=== PATIENT | female | born 2000 | race Two or more races ===

== ENCOUNTER 2023-04-04 11:04 | Outpatient (OUT) | payer BC, MEDICAID, SELFPAY ==
--- NOTE | 2023-04-04 11:19 | US_ITS ---
[address] [address] Patient Name: ARIEL JOINER MRN: [id number] date: 2000 Sex: F Assigned Patient Location: US Current Patient Location: US Accession/Order Number: [id number] Exam Date: 04/04/2023 11:25 Report Date: 04/04/2023 18:31 At the request of: LALY PRADO Procedure: US OB growth EXAMINATION: US OB growth HISTORY: 30 weeks gestation of Z3A.30 COMPARISON: No relevant comparison available. FINDINGS: Heart Rate: 150.0 bpm Amniotic Fluid Volume: 15.9 cm Number: 1.0 Position: Breech presentation, longitudinal lie Maximum Vertical Pocket: 6.2 cm cm 5.7 cm cm 1.0 cm cm 2.9 cm cm BIOMETRY: BPD: 7.3 cm cm; 29 weeks 3 days; 22% HC: 28.1 cmcm; 30 weeks 5 days, 36% AC: 27.2 cm cm; 31 weeks 2 days, 81% FL: 5.4 cm cm; 28 weeks 4 days; 7.2 % % EFW: 1537.9 grams, 3 lbs. 6 oz., 46% FL/AC: 19.9 FL/BPD: 73.6 HC/AC: 1.0 GESTATIONAL AGE: Age by EDC: 30 weeks 0 days KRYSTINA by EDC: 06/13/2023 Age by US: 30 weeks 0 days KRYSTINA by US: 06/13/2023 US/US OB growth IMPRESSION: Normal interval growth Electronically authenticated by: SHANA CUMMINS Date: 04/04/2023 18:31
== END 2023-04-04 11:05 | disposition home or self-care (01) ==
PROVIDERS: Visit Provider Midwife
DX: Z34.93 Encounter for supervision of normal pregnancy, unspecified, third trimester (principal)
CPT/HCPCS: 76816

== ENCOUNTER 2023-06-03 07:25 | Inpatient (IN) | payer BC, MEDICAID, SELFPAY ==
[2023-06-03] VITALS (36 sets, daily range): BP systolic 78–127; BP diastolic 39–84; PULSE 76–111; RESP 10–28; TEMP 36.3–37.1; O2SAT 95–98
--- NOTE | 2023-06-03 07:29 | US_ITS ---
[address] [address] Patient Name: ARIEL JOINER MRN: [id number] date: 2000 Sex: F Assigned Patient Location: [facility] Current Patient Location: [facility] Accession/Order Number: [id number] Exam Date: 06/03/2023 08:13 Report Date: 06/03/2023 08:37 At the request of: LALY PRADO Procedure: US OB limited PROCEDURE: US OB limited, 06/03/2023 8:13 AM EST CLINICAL INDICATIONS: Encounter for third trimester , positioning evaluation. 1 para 0 Expected gestational age: 30 weeks 4 days Expected KRYSTINA: 06/13/2023 COMPARISON: 04/04/2023 TECHNIQUE: Limited third trimester obstetric sonogram, grayscale, color evaluation. FINDINGS: A single living intrauterine is identified with breech presentation. body, cardiac activity noted, heart rate 132 bpm. Placenta: Not evaluated. anatomic assessment: Not performed. biometry: Not performed. US/US OB limited IMPRESSION: 1. Single living intrauterine , breech presentation Electronically authenticated by: PAULIE LACY Date: 06/03/2023 08:37
[2023-06-03 07:57] LABS: Basophils Percent Auto 0.3 % (0.2-2.0); Eosinophils Absolute Auto 0.2 10^3/uL (0.0-0.7); Eosinophils Percent Auto 1.4 % (0.9-7.0); Hematocrit 37.7 % (36.0-48.0); Hemoglobin 12.2 g/dL (12.0-16.0); Immature Granulocytes Abs Auto 0.03 10^3/uL (0.00-0.03); Immature Granulocytes Pct Auto 0.3 % (0.0-0.5); Lymphocytes Absolute Auto 3.5 10^3/uL (1.2-3.8); Lymphocytes Percent Auto 31.7 % (20.5-60.0); Mean Corpuscular HGB Conc 32.4 g/dL (29.9-35.2); Mean Corpuscular Hemoglobin 28.6 pg (26.7-34.0); Mean Corpuscular Volume 88.5 fL (81.0-99.0); Mean Platelet Volume 11.8 fL (9.5-13.5); Monocytes Absolute Auto 0.9 10^3/uL (0.3-0.8); Monocytes Percent Auto 8.4 % (1.7-12.0); Neutrophils Absolute Auto 6.5 10^3/uL (1.4-6.5); Neutrophils Percent Auto 57.9 % (43.0-75.0); Platelet Count 266 10^3/uL (150-450); Red Blood Count 4.26 10^6/uL (4.20-5.40); Red Cell Distribution Width 13.7 % (11.0-15.0); White Blood Count 11.2 10^3/uL (4.0-11.0)
[2023-06-03 08:00] LABS: Bilirubin Urine NEGATIVE (NEGATIVE); Blood Urine NEGATIVE (NEGATIVE); Clarity Urine CLEAR (CLEAR); Color Urine LT. YELLOW (YELLOW); Glucose Urine UA NEGATIVE (NEGATIVE); Ketones Urine NEGATIVE (NEGATIVE); Leukocyte Esterase Urine NEGATIVE (NEGATIVE); Nitrite Urine NEGATIVE (NEGATIVE); Protein Urine NEGATIVE (NEG/TRACE); Specific Gravity Urine 1.015 (1.005-1.025); Urobilinogen Urine 0.2 EU/dL (0.2-1.0)
[2023-06-03] MEDS: LACTATED RINGER'S SOLUTION 1,000 ML 1000 ML IV ×2 (08:00→09:01)
[2023-06-03 08:13] LABS: Bacteria Urine NONE SEEN #/HPF (NONE SEEN); Cast Seen? NONE SEEN #/LPF (NONE SEEN); Crystals Seen? None Seen #/HPF (None Seen); Mucus Urine NONE SEEN (NONE SEEN); RBC Urine 0-2 #/HPF (0-2); Squamous Epithelial Cell Urine FEW #/LPF (NONE/RARE); WBC Urine NONE SEEN #/HPF (NONE SEEN)
[2023-06-03 08:24] LABS: Amphetamine Screen Urine NEGATIVE (NEGATIVE); Barbiturates Screen Urine NEGATIVE (NEGATIVE); Benzodiazepines Screen Urine NEGATIVE (NEGATIVE); Buprenorphine Screen Urine NEGATIVE (NEGATIVE); Cannabinoid Screen Urine NEGATIVE (NEGATIVE); Cocaine Screen Urine NEGATIVE (NEGATIVE); Methadone Screen Urine NEGATIVE (NEGATIVE); Methamphetamines Screen Urine NEGATIVE (NEGATIVE); Opiate Screen Urine NEGATIVE (NEGATIVE); Oxycodone Screen Urine NEGATIVE (NEGATIVE); Phencyclidine Screen Urine NEGATIVE (NEGATIVE); Tricyclic Antidepressant Urine NEGATIVE (NEGATIVE)
[2023-06-03] MEDS: METOCLOPRAMIDE HCL 10 MG/2 ML VIAL IVP (08:57)
[2023-06-03] MEDS: FAMOTIDINE/PF 20 MG/2 ML VIAL IV (08:57)
[2023-06-03] MEDS: CITRIC ACID/SODIUM CITRATE 30 ML SOLUTION ORACIT SHOHL'S SOLN PO (08:57)
--- NOTE | 2023-06-03 09:08 | P.OBHP_ITS ---
OB - H&P: HPI History of Present Illness Chief complaint: ISSUES 38 WEEKS : 2 Para: 0 Gestational age based on last menstrual period: 38.4 Comments: SROM at 6:45 am this morning patient has breech presentation and was scheduled for primary section on SundayJune 08. History of Present Dating criteria: LMP confirmed by 1st trimester US Ultrasounds: normal mid trimester US Medical complications OB: none Labs Blood type: O (+) positive Rubella: nonimmune RPR/VDLR: nonreactive GBS status: negative HBsAG: negative Review of Systems ROS Status of ROS 10 or more systems reviewed and unremarkable except as noted in history and below Meds Home Medications and Allergies Allergies Allergy/AdvReac Type Severity Reaction Status Date / Time No Known Drug Allergies Allergy Verified 06/03/23 08:26 Exam Constitutional Vital Signs, click to edit/add: Last Vital Signs Temp 98.7 F 06/03/23 07:52 Pulse 98 H 06/03/23 07:38 BP 121/84 06/03/23 07:38 Common normals: no apparent distress and oriented x3 HENMT Common normals: normocephalic Eye Common normals: EOMs intact bilaterally Neck & C-Spine Common normals: full ROM and no lymphadenopathy Lymph Lymphatic: no lymphadenopathy noted Respiratory Common normals: normal respiratory effort and clear to auscultation bilaterally Cardio Common normals: regular rate, regular rhythm and no murmurs Rate: regular rate Rhythm: regular rhythm GI Common normals: Normal to inspection, nondistended, normoactive bowel sounds present Common normals: external appearance normal Bladder/kidney exam: catheter in place Back & Pelvis Common normals: no CVA tenderness Extremity Common normals: normal to inspection and full ROM Neuro Common normals: oriented x3 Sensorium/orientation: awake, alert, oriented to person, oriented to place and oriented to time Psych Common normals: mental status grossly normal, thought process normal and cooperative Results Labs Labs: Short CBC 06/03/23 Range/Units 07:43 WBC 11.2 H (4.0-11.0) 10^3/uL Hgb 12.2 (12.0-16.0) g/dL Hct 37.7 (36.0-48.0) % Plt Count 266 (150-450) 10^3/uL Urine 11/26/23 Range/Units 07:35 Urine Color Lt. yellow (YELLOW) Urine Clarity Clear (CLEAR) Urine pH 6.0 (5.0-9.0) Ur Specific [place] 1.015 (1.005-1.025) Urine Protein Negative (NEG/TRACE) mg/dL Urine Glucose (UA) Negative (NEGATIVE) mg/dL OB - A/P Assessment and Plan (1) Term : Plan rimary section for breech presentation
[2023-06-03] MEDS: CEFAZOLIN SODIUM/DEXTROSE,ISO 2 GM/50 ML PIGGYBACK IV (10:00)
[2023-06-03] MEDS: LACTATED RINGER'S SOLUTION 1,000 ML 50 ML IV ×2 (10:30→11:00)
--- NOTE | 2023-06-03 10:53 | PM.OBPRCCS ---
Procedure Pre-op/Post-op diagnoses: Pre-Op/Post-Op Diagnoses Operation Date: 06/03/23 09:30 <No data on this case meets the specified criteria> Procedure: Procedures Operation Date: 06/03/23 09:30 Actual Procedure Side Surgeon p Not Applicable Chin Beard DO Certified Medical Aide: Chin Beard Estimated blood loss (mL): 575 Disposition: PACU Anesthesia type: Spinal
--- NOTE | 2023-06-03 10:53 | PM.ONB ---
Brief Operative Note Date of procedure: 06/03/23 Pre-op diagnosis: iup at 38 4/7wks, srom, breech presentation Post-op diagnosis: same as pre-op Procedure: NAME OF PROCEDURE: [ section ] PROCEDURE: Patient was taken back to the Operating Room where she was given a spinal anesthesia with Duramorph without difficulty. She was prepped and draped in the normal sterile fashion. A Pfannenstiel skin incision was then made 2 cm above the symphysis pubis and carried down to underlying rectus fascia using a Bovie. The fascia was incised in the midline and extended laterally using Nation scissors. Two Rohit clamps were placed on the superior aspect of the fascia and dissected off the underlying rectus muscles. The same was performed on the inferior aspect as well. The muscles were then in the midline. Peritoneum was identified and entered bluntly. The peritoneum was then extended superiorly and inferiorly with good visualization of the bladder. The bladder blade was inserted. A low transverse incision was made on the patient's uterus and extended laterally digitally. The was then delivered atraumatically after the bladder blade was removed in the breech position. The cord was clamped and cut. Cord blood was obtained. The was handed off to awaiting team. The patient's placenta was spontaneously delivered. The uterus was then exteriorized. The uterus was cleared of all clots and debris. The bladder blade was reinserted. The patient's uterine incision was closed using #0 Vicryl in a running lock fashion. Excellent hemostasis was assured. The uterus was then returned to the patient's abdomen. The patient's abdomen was copiously irrigated using warm saline. Peritoneal gutters were cleared of all clots and debris. Again excellent hemostasis was assured. The patient's peritoneum was closed using 3-0 Vicryl in a running fashion. The patient's fascia was closed using #0 Vicryl in a running fashion. The patient's skin was closed using 4-0 Vicryl subcuticularly. The patient tolerated the procedure well. Sponge, lap, and needle counts were correct x2. The patient was taken to the Recovery Room in stable condition. Anesthesia: spinal Surgeon: Chin Beard Ballast Cleaning Machine Operator: LALY PRADO Estimated blood loss (mL): 575 Pathology: none sent Condition: stable Disposition: floor
[2023-06-03] MEDS: OXYTOCIN/0.9 % SODIUM CHLORIDE 20 UNITS/1,000 ML PLAST..BAG 125 UNIT IV (11:46)
[2023-06-03] MEDS: KETOROLAC TROMETHAMINE 30 MG/ML VIAL IVP ×2 (12:50→20:39)
[2023-06-03] MEDS: CEFAZOLIN SODIUM/DEXTROSE,ISO 1 GM/50 ML IV.SOLN IV (16:07)
--- NOTE | 2023-06-03 19:04 | W.PC.ACHO ---
Registration Status: ADM IN Primary Language: Azerbaijani Preferred Language: Azerbaijani Active Medications Generic Name Dose Route Start Last Admin Trade Name Freq PRN Reason Stop Dose Admin Al Hydroxide/Mg Hydroxide 2,400 mg 06/03/23 11:29 Magnesium Hydroxide 2,400 Mg/10 Ml Oral.Susp PO Q6H PRN Dyspepsia Diphenhydramine HCl 25 mg 06/03/23 11:29 Diphenhydramine Hcl 50 Mg/Ml (1ml) Vial IV 06/04/23 11:33 Q6H PRN Itching Diphtheria/Pertussis/Tetanus Vacc 0.5 ml 06/05/23 09:00 Adacel Diph,Pertuss(Acell),Tet Vac/Pf 0.5 Ml Adult Syringe IM 06/05/23 09:01 .ONCE ONE Docusate Sodium 100 mg 06/04/23 09:00 Docusate Sodium 100 Mg Capsule PO BID VILMA Enoxaparin Sodium 40 mg 06/03/23 23:00 Enoxaparin Sodium 40 Mg/0.4 Ml Syringe SUBQ Q24H [facility] Lactated Ringer's 1,000 mls @ 125 mls/hr 06/03/23 11:30 06/03/23 12:24 Lactated Ringers IV Not Given .Q8H VILMA Oxytocin/Sodium Chloride 20 units in 1,000 mls @ 125 mls/hr 06/03/23 11:29 06/03/23 11:46 Pitocin 20 Unit/1,000 Ml-Ns IV 06/03/23 19:28 125 mls/hr ONCE ONE 125 mls/hr Administration Protocol Ibuprofen 800 mg 06/04/23 20:00 Ibuprofen 400 Mg Tablet PO Q8H PRN Pain Ketorolac Tromethamine 30 mg 06/03/23 12:00 06/03/23 12:50 Ketorolac Tromethamine 30 Mg/Ml Vial IVP 06/04/23 04:01 30 mg Q8H VILMA Administration Measles/Mumps/Rubella Vaccine Live 0.5 ml 06/05/23 09:00 Measles,Mumps,Rubella Vacc/Pf 0.5 Ml Vial SQ 06/05/23 09:01 .ONCE ONE Ondansetron HCl 4 mg 06/03/23 11:29 Ondansetron Pf 4 Mg/2 Ml Vial IV Q6H PRN Nausea And Vomiting Ondansetron HCl 4 mg 06/03/23 11:29 Ondansetron 4 Mg Rapdis Tablet PO Q6H PRN Nausea And Vomiting Oxycodone/Acetaminophen 1 tab 06/03/23 11:20 Oxycodone Hcl/Acetaminophen 5mg/325mg PO Q4H PRN Pain Scale 4-6 Oxycodone/Acetaminophen 2 tab 06/03/23 11:20 Oxycodone Hcl/Acetaminophen 5mg/325mg PO Q4H PRN Pain Scale 7-10 Senna 17.2 mg 06/03/23 20:00 Sennosides 8.6 Mg Tablet PO QHS PRN Constipation Simethicone 80 mg 06/03/23 11:29 Simethicone 80 Mg Tab.Chew PO QID PRN Abdominal Distention Varicella Virus Vaccine Live 0.5 ml 06/05/23 09:00 Varicella Vaccine Live/Pf 0.5 Ml Vial SUBQ 06/05/23 09:01 .ONCE ONE Diet Category Date Time Status Regular Consistency Diet Diet 06/03/23 11:21 Active IV Insertion/Site Date of IV Line Insertion [ 06/03/23 Short PIV (<1.75 in) 20g left Forearm] IV Insertion Time [Short PIV ( 07:43 <1.75 in) 20g left Forearm] Neurology Patient orientation (short person,place,time,situation list) Respiratory Lung sounds [Throughout] clear Lung sounds [Throughout] clear Lung sounds [Throughout] clear Pulse Oximetry 96 Pulse Oximetry 96 Pulse Oximetry 97 Pulse Oximetry 97 Pulse Oximetry 97 Pulse Oximetry 97 Pulse Oximetry 96 Pulse Oximetry 98 Pulse Oximetry 96 Pulse Oximetry 97 Pulse Oximetry 96 Pulse Oximetry 96 Pulse Oximetry 96 Pulse Oximetry 95 Pulse Oximetry 96 Pulse Oximetry 95 Pulse Oximetry 96 Pulse Oximetry 95 Pulse Oximetry 96 Pulse Oximetry 96 Pulse Oximetry 96 Pulse Oximetry 96 Pulse Oximetry 95 Pulse Oximetry 96 Pulse Oximetry 96 Pulse Oximetry 96 Pulse Oximetry 98 Oxygen Delivery Method Room Air Oxygen Delivery Method Room Air Oxygen Delivery Method Room Air Oxygen Delivery Method Room Air Oxygen Delivery Method Room Air Oxygen Delivery Method Room Air Cardiology Heart Sounds Strong,Regular Heart Sounds Strong,Regular Bowels Bowel Pattern No Bowel Movement Bowel Pattern No Bowel Movement Catheter Urinary Catheter Date of 06/03/23 Insertion [Urethral] Urinary Catheter Time of 08:32 Insertion [Urethral]
--- NOTE | 2023-06-03 23:23 | W.PC.ACHO ---
Registration Status: ADM IN Primary Language: New Zealander Preferred Language: [place]alander Report received from Cassidy Schaffer RN at 1900. Active Medications Generic Name Dose Route Start Last Admin Trade Name Freq PRN Reason Stop Dose Admin Al Hydroxide/Mg Hydroxide 2,400 mg 06/03/23 11:29 Magnesium Hydroxide 2,400 Mg/10 Ml Oral.Susp PO Q6H PRN Dyspepsia Diphenhydramine HCl 25 mg 06/03/23 11:29 Diphenhydramine Hcl 50 Mg/Ml (1ml) Vial IV 06/04/23 11:33 Q6H PRN Itching Diphtheria/Pertussis/Tetanus Vacc 0.5 ml 06/05/23 09:00 Adacel Diph,Pertuss(Acell),Tet Vac/Pf 0.5 Ml Adult Syringe IM 06/05/23 09:01 .ONCE ONE Docusate Sodium 100 mg 06/04/23 09:00 Docusate Sodium 100 Mg Capsule PO BID VILMA Enoxaparin Sodium 40 mg 06/03/23 23:00 Enoxaparin Sodium 40 Mg/0.4 Ml Syringe SUBQ Q24H VILMA Lactated Ringer's 1,000 mls @ 125 mls/hr 06/03/23 11:30 06/03/23 12:24 Lactated Ringers IV Not Given .Q8H VILMA Ibuprofen 800 mg 06/04/23 20:00 Ibuprofen 400 Mg Tablet PO Q8H PRN Pain Ketorolac Tromethamine 30 mg 06/03/23 12:00 06/03/23 20:39 Ketorolac Tromethamine 30 Mg/Ml Vial IVP 06/04/23 04:01 30 mg Q8H VILMA Administration Measles/Mumps/Rubella Vaccine Live 0.5 ml 06/05/23 09:00 Measles,Mumps,Rubella Vacc/Pf 0.5 Ml Vial SQ 06/05/23 09:01 .ONCE ONE Ondansetron HCl 4 mg 06/03/23 11:29 Ondansetron Pf 4 Mg/2 Ml Vial IV Q6H PRN Nausea And Vomiting Ondansetron HCl 4 mg 06/03/23 11:29 Ondansetron 4 Mg Rapdis Tablet PO Q6H PRN Nausea And Vomiting Oxycodone/Acetaminophen 1 tab 06/03/23 11:20 Oxycodone Hcl/Acetaminophen 5mg/325mg PO Q4H PRN Pain Scale 4-6 Oxycodone/Acetaminophen 2 tab 06/03/23 11:20 Oxycodone Hcl/Acetaminophen 5mg/325mg PO Q4H PRN Pain Scale 7-10 Senna 17.2 mg 06/03/23 20:00 Sennosides 8.6 Mg Tablet PO QHS PRN Constipation Simethicone 80 mg 06/03/23 11:29 Simethicone 80 Mg Tab.Chew PO QID PRN Abdominal Distention Varicella Virus Vaccine Live 0.5 ml 06/05/23 09:00 Varicella Vaccine Live/Pf 0.5 Ml Vial SUBQ 06/05/23 09:01 .ONCE ONE Diet Category Date Time Status Regular Consistency Diet Diet 06/03/23 11:21 Active IV Insertion/Site Date of IV Line Insertion [ 06/03/23 Short PIV (<1.75 in) 20g left Forearm] IV Insertion Time [Short PIV ( 07:43 <1.75 in) 20g left Forearm] Neurology Patient orientation (short person,place,time,situation list) Respiratory Lung sounds [Throughout] clear Lung sounds [Throughout] clear Lung sounds [Throughout] clear Pulse Oximetry 96 Pulse Oximetry 96 Pulse Oximetry 97 Pulse Oximetry 97 Pulse Oximetry 97 Pulse Oximetry 97 Pulse Oximetry 96 Pulse Oximetry 98 Pulse Oximetry 96 Pulse Oximetry 97 Pulse Oximetry 96 Pulse Oximetry 96 Pulse Oximetry 96 Pulse Oximetry 95 Pulse Oximetry 96 Pulse Oximetry 95 Pulse Oximetry 96 Pulse Oximetry 95 Pulse Oximetry 96 Pulse Oximetry 96 Pulse Oximetry 96 Pulse Oximetry 96 Pulse Oximetry 95 Pulse Oximetry 96 Pulse Oximetry 96 Pulse Oximetry 96 Pulse Oximetry 98 Oxygen Delivery Method Room Air Oxygen Delivery Method Room Air Oxygen Delivery Method Room Air Oxygen Delivery Method Room Air Oxygen Delivery Method Room Air Oxygen Delivery Method Room Air Oxygen Delivery Method Room Air Cardiology Heart Sounds Strong,Regular Heart Sounds Strong,Regular Bowels Bowel Pattern No Bowel Movement Bowel Pattern No Bowel Movement Catheter Urinary Catheter Date of 06/03/23 Insertion [Urethral] Urinary Catheter Time of 08:32 Insertion [Urethral]
[2023-06-04] VITALS (13 sets, daily range): BP systolic 107–119; BP diastolic 67–74; PULSE 85–103; RESP 14–17; TEMP 36.4–37.6; O2SAT 96
[2023-06-04] MEDS: ENOXAPARIN SODIUM 40 MG/0.4 ML SYRINGE SUBQ ×2 (00:30→23:44)
[2023-06-04] MEDS: KETOROLAC TROMETHAMINE 30 MG/ML VIAL IVP (04:07)
[2023-06-04 07:01] LABS: Basophils Absolute Auto 0.1 10^3/uL (0.0-0.1); Basophils Percent Auto 0.4 % (0.2-2.0); Eosinophils Absolute Auto 0.1 10^3/uL (0.0-0.7); Eosinophils Percent Auto 0.8 % (0.9-7.0); Hematocrit 32.4 % (36.0-48.0); Hemoglobin 10.5 g/dL (12.0-16.0); Immature Granulocytes Abs Auto 0.04 10^3/uL (0.00-0.03); Immature Granulocytes Pct Auto 0.3 % (0.0-0.5); Lymphocytes Absolute Auto 2.7 10^3/uL (1.2-3.8); Mean Corpuscular HGB Conc 32.4 g/dL (29.9-35.2); Mean Corpuscular Volume 89.5 fL (81.0-99.0); Mean Platelet Volume 11.7 fL (9.5-13.5); Monocytes Absolute Auto 0.9 10^3/uL (0.3-0.8); Monocytes Percent Auto 6.7 % (1.7-12.0); Neutrophils Absolute Auto 9.5 10^3/uL (1.4-6.5); Neutrophils Percent Auto 71.8 % (43.0-75.0); Platelet Count 222 10^3/uL (150-450); Red Blood Count 3.62 10^6/uL (4.20-5.40); Red Cell Distribution Width 13.6 % (11.0-15.0); White Blood Count 13.3 10^3/uL (4.0-11.0)
--- NOTE | 2023-06-04 07:36 | PM.OBPN ---
OB - PN: Subj Subjective Patient comments: no complaints and pain well controlled [place] status: doing well Exam Constitutional Vital Signs, click to edit/add: Last Vital Signs Temp 98.0 F 06/04/23 05:00 Pulse 103 H 06/04/23 04:10 Resp 16 06/04/23 05:00 BP 116/68 06/04/23 04:10 Pulse Ox 96 06/03/23 13:47 O2 Del Method Room Air 06/04/23 05:00 Documenting provider has reviewed patient's vital signs: yes Common normals: no apparent distress Respiratory Common normals: normal respiratory effort and clear to auscultation bilaterally Cardio Common normals: regular rate and regular rhythm GI Common normals: Normal to inspection, nondistended, normoactive bowel sounds present Extremity Common normals: no calf tenderness Results Labs Labs: Short CBC 06/03/23 06/04/23 Range/Units 07:43 06:45 WBC 11.2 H 13.3 H (4.0-11.0) 10^3/uL Hgb 12.2 10.5 L (12.0-16.0) g/dL Hct 37.7 32.4 L (36.0-48.0) % Plt Count 266 222 (150-450) 10^3/uL Urine 06/03/23 Range/Units 07:35 Urine Color Lt. yellow (YELLOW) Urine Clarity Clear (CLEAR) Urine pH 6.0 (5.0-9.0) Ur Specific [place] 1.015 (1.005-1.025) Urine Protein Negative (NEG/TRACE) mg/dL Urine Glucose (UA) Negative (NEGATIVE) mg/dL OB - PN: A/P Assessment and Plan (1) Term : Plan - day: 1 Plan: routine postop care Time Spent with Patient Time: Total time spent is greater than 50% in coordination of care (as documented) at patient's floor/unit and/or counseling patient: Total time spent with greater than 50% in coordination of care (as documented) at patient's floor/unit and/or counseling patient: less than 15 minutes
--- NOTE | 2023-06-04 07:42 | W.PC.ACHO ---
Registration Status: ADM IN Primary Language: Slovenian Preferred Language: Slovenian Report given to Albertina COTTO. Active Medications Generic Name Dose Route Start Last Admin Trade Name Freq PRN Reason Stop Dose Admin Al Hydroxide/Mg Hydroxide 2,400 mg 06/03/23 11:29 Magnesium Hydroxide 2,400 Mg/10 Ml Oral.Susp PO Q6H PRN Dyspepsia Diphenhydramine HCl 25 mg 06/03/23 11:29 Diphenhydramine Hcl 50 Mg/Ml (1ml) Vial IV 06/04/23 11:33 Q6H PRN Itching Diphtheria/Pertussis/Tetanus Vacc 0.5 ml 06/05/23 09:00 Adacel Diph,Pertuss(Acell),Tet Vac/Pf 0.5 Ml Adult Syringe IM 06/05/23 09:01 .ONCE ONE Docusate Sodium 100 mg 06/04/23 09:00 Docusate Sodium 100 Mg Capsule PO BID VILMA Enoxaparin Sodium 40 mg 06/03/23 23:00 06/04/23 00:30 Enoxaparin Sodium 40 Mg/0.4 Ml Syringe SUBQ 40 mg Q24H VILMA Administration Lactated Ringer's 1,000 mls @ 125 mls/hr 06/03/23 11:30 06/03/23 12:24 Lactated Ringers IV Not Given .Q8H VILMA Ibuprofen 800 mg 06/04/23 20:00 Ibuprofen 400 Mg Tablet PO Q8H PRN Pain Measles/Mumps/Rubella Vaccine Live 0.5 ml 06/05/23 09:00 Measles,Mumps,Rubella Vacc/Pf 0.5 Ml Vial SQ 06/05/23 09:01 .ONCE ONE Ondansetron HCl 4 mg 06/03/23 11:29 Ondansetron Pf 4 Mg/2 Ml Vial IV Q6H PRN Nausea And Vomiting Ondansetron HCl 4 mg 06/03/23 11:29 Ondansetron 4 Mg Rapdis Tablet PO Q6H PRN Nausea And Vomiting Oxycodone/Acetaminophen 1 tab 06/03/23 11:20 Oxycodone Hcl/Acetaminophen 5mg/325mg PO Q4H PRN Pain Scale 4-6 Oxycodone/Acetaminophen 2 tab 06/03/23 11:20 Oxycodone Hcl/Acetaminophen 5mg/325mg PO Q4H PRN Pain Scale 7-10 Senna 17.2 mg 06/03/23 20:00 Sennosides 8.6 Mg Tablet PO QHS PRN Constipation Simethicone 80 mg 06/03/23 11:29 Simethicone 80 Mg Tab.Chew PO QID PRN Abdominal Distention Varicella Virus Vaccine Live 0.5 ml 06/05/23 09:00 Varicella Vaccine Live/Pf 0.5 Ml Vial SUBQ 06/05/23 09:01 .ONCE ONE Diet Category Date Time Status Regular Consistency Diet Diet 06/03/23 11:21 Active IV Insertion/Site Date of IV Line Insertion [ 06/03/23 Short PIV (<1.75 in) 20g left Forearm] IV Insertion Time [Short PIV ( 07:43 <1.75 in) 20g left Forearm] Neurology Patient orientation (short person,place,time,situation list) Respiratory Lung sounds [Throughout] clear Lung sounds [Throughout] clear Lung sounds [Throughout] clear Pulse Oximetry 96 Pulse Oximetry 96 Pulse Oximetry 97 Pulse Oximetry 97 Pulse Oximetry 97 Pulse Oximetry 97 Pulse Oximetry 96 Pulse Oximetry 98 Pulse Oximetry 96 Pulse Oximetry 97 Pulse Oximetry 96 Pulse Oximetry 96 Pulse Oximetry 96 Pulse Oximetry 95 Pulse Oximetry 96 Pulse Oximetry 95 Pulse Oximetry 96 Pulse Oximetry 95 Pulse Oximetry 96 Pulse Oximetry 96 Pulse Oximetry 96 Pulse Oximetry 96 Pulse Oximetry 95 Pulse Oximetry 96 Pulse Oximetry 96 Pulse Oximetry 96 Pulse Oximetry 98 Oxygen Delivery Method Room Air Oxygen Delivery Method Room Air Oxygen Delivery Method Room Air Oxygen Delivery Method Room Air Oxygen Delivery Method Room Air Oxygen Delivery Method Room Air Oxygen Delivery Method Room Air Oxygen Delivery Method Room Air Oxygen Delivery Method Room Air Oxygen Delivery Method Room Air Oxygen Delivery Method Room Air Oxygen Delivery Method Room Air Cardiology Heart Sounds Strong,Regular Heart Sounds Strong,Regular Heart Sounds Strong,Regular Bowels Bowel Pattern No Bowel Movement Bowel Pattern No Bowel Movement Bowel Pattern No Bowel Movement Bowel Pattern No Bowel Movement Bowel Pattern No Bowel Movement Catheter Urinary Catheter Date of 06/03/23 Insertion [Urethral] Urinary Catheter Time of 08:32 Insertion [Urethral] Date Urinary Catheter Removed 06/04/23 [Urethral] Time Urinary Catheter 05:00 Discontinued [Urethral]
[2023-06-04] MEDS: DOCUSATE SODIUM 100 MG CAPSULE PO ×2 (09:41→20:41)
[2023-06-04] MEDS: IBUPROFEN 400 MG TABLET 800 MG PO ×2 (11:43→20:41)
--- NOTE | 2023-06-04 21:40 | PC.NURSE ---
RN at bedside assisting with proper latch. pt complains of sore nipple and pinching with breast feeding. RN provides breast feeding education and positioning. RN adjusts 's latch and patient sighs of much impression of relief. pt encouraged to call out if needing any additional help.
[2023-06-05 07:35] VITALS: RESP 14; TEMP 36.8
[2023-06-05] MEDS: IBUPROFEN 400 MG TABLET 800 MG PO ×2 (07:36→16:03)
[2023-06-05] MEDS: DOCUSATE SODIUM 100 MG CAPSULE PO ×2 (07:36→22:11)
[2023-06-05 07:40] VITALS: BP 109/68; PULSE 87
--- NOTE | 2023-06-05 07:56 | P.OBPN_ITS ---
OB - PN: Subj Subjective Patient comments: no complaints and flatus present status: doing well and well Exam Constitutional Vital Signs, click to edit/add: Last Vital Signs Temp 99.6 F 06/04/23 23:46 Pulse 87 06/05/23 07:40 Resp 16 06/04/23 23:46 BP 109/68 06/05/23 07:40 Pulse Ox 96 06/04/23 15:58 O2 Del Method Room Air 06/04/23 20:29 Common normals: no apparent distress and oriented x3 General appearance: cooperative, comfortable and well kempt HENMT Common normals: normocephalic Eye Common normals: EOMs intact bilaterally Neck & C-Spine Common normals: full ROM and no lymphadenopathy Lymph Lymphatic: no lymphadenopathy noted Chest Common normals: inspection of chest normal Respiratory Common normals: normal respiratory effort Auscultation: clear to auscultation bilaterally Cardio Common normals: regular rate and regular rhythm Rate: regular rate Rhythm: regular rhythm GI Common normals: Normal to inspection, nondistended, normoactive bowel sounds present Common normals: no CVA tenderness Back & Pelvis Common normals: no CVA tenderness Extremity Common normals: normal to inspection Neuro Common normals: oriented x3 and moves all extremities Sensorium/orientation: awake, alert, oriented to person, oriented to place and oriented to time Psych Common normals: mental status grossly normal, thought process normal and coopera tive Attitude: calm OB - PN: A/P Assessment and Plan (1) Term : Plan - day: 2 Plan: routine postop care Comment: patient states she would like to stay one more night as she feels she wants to walk more and get her pain under control. Routine post op orders continue Time Spent with Patient Time: Total time spent is greater than 50% in coordination of care (as documented) at patient's floor/unit and/or counseling patient: Total time spent with greater than 50% in coordination of care (as documented) at patient's floor/unit and/or counseling patient: less than 15 minutes
[2023-06-05 16:04] VITALS: BP 116/71; PULSE 90
[2023-06-05 16:05] VITALS: RESP 16; TEMP 36.8
--- NOTE | 2023-06-05 19:12 | W.PC.ACHO ---
Registration Status: ADM IN Primary Language: [place] Preferred Language: [place] Active Medications Generic Name Dose Route Start Last Admin Trade Name Freq PRN Reason Stop Dose Admin Al Hydroxide/Mg Hydroxide 2,400 mg 06/03/23 11:29 Magnesium Hydroxide 2,400 Mg/10 Ml Oral.Susp PO Q6H PRN Dyspepsia Docusate Sodium 100 mg 06/04/23 09:00 06/05/23 07:36 Docusate Sodium 100 Mg Capsule PO 100 mg BID VILMA Administration Enoxaparin Sodium 40 mg 06/03/23 23:00 06/04/23 23:44 Enoxaparin Sodium 40 Mg/0.4 Ml Syringe SUBQ 40 mg Q24H VILMA Administration Lactated Ringer's 1,000 mls @ 125 mls/hr 06/03/23 11:30 06/03/23 12:24 Lactated Ringers IV Not Given .Q8H VILMA Ibuprofen 800 mg 06/04/23 12:00 06/05/23 16:03 Ibuprofen 400 Mg Tablet PO 800 mg Q8H PRN Administration Pain Ondansetron HCl 4 mg 06/03/23 11:29 Ondansetron Pf 4 Mg/2 Ml Vial IV Q6H PRN Nausea And Vomiting Ondansetron HCl 4 mg 06/03/23 11:29 Ondansetron 4 Mg Rapdis Tablet PO Q6H PRN Nausea And Vomiting Oxycodone/Acetaminophen 1 tab 06/03/23 11:20 Oxycodone Hcl/Acetaminophen 5mg/325mg PO Q4H PRN Pain Scale 4-6 Oxycodone/Acetaminophen 2 tab 06/03/23 11:20 Oxycodone Hcl/Acetaminophen 5mg/325mg PO Q4H PRN Pain Scale 7-10 Senna 17.2 mg 06/03/23 20:00 Sennosides 8.6 Mg Tablet PO QHS PRN Constipation Simethicone 80 mg 06/03/23 11:29 Simethicone 80 Mg Tab.Chew PO QID PRN Abdominal Distention Respiratory Oxygen Delivery Method Room Air Oxygen Delivery Method Room Air Oxygen Delivery Method Room Air Oxygen Delivery Method Room Air Oxygen Delivery Method Room Air Oxygen Delivery Method Room Air Cardiology Heart Sounds Strong,Regular Heart Sounds Strong,Regular Heart Sounds Strong,Regular Heart Sounds Regular Bowels Bowel Pattern No Bowel Movement Bowel Pattern No Bowel Movement Date of Last Bowel Movement 06/04/23 Renal Bladder Pattern Continent Bladder Pattern Continent Bladder Pattern Continent
[2023-06-05] MEDS: ENOXAPARIN SODIUM 40 MG/0.4 ML SYRINGE SUBQ (23:32)
[2023-06-06 00:50] VITALS: BP 116/61; PULSE 84
[2023-06-06 00:51] VITALS: RESP 16; TEMP 36.9
--- NOTE | 2023-06-06 08:07 | PM.OBPN ---
OB - PN: Subj Subjective Patient comments: no complaints and pain well controlled [place] status: doing well Exam Constitutional Vital Signs, click to edit/add: Last Vital Signs Temp 98.5 F 06/06/23 00:51 Pulse 84 06/06/23 00:50 Resp 16 06/06/23 00:51 BP 116/61 06/06/23 00:50 Pulse Ox 96 06/04/23 15:58 O2 Del Method Room Air 06/05/23 16:05 Documenting provider has reviewed patient's vital signs: yes Common normals: no apparent distress Respiratory Common normals: normal respiratory effort and clear to auscultation bilaterally Cardio Common normals: regular rate and regular rhythm GI Common normals: Normal to inspection, nondistended, normoactive bowel sounds present Extremity Common normals: normal to inspection and no calf tenderness OB - PN: A/P Assessment and Plan (1) Term : Plan - day: 3 Plan: routine postop care, discharge home and follow up 6 weeks Time Spent with Patient Time: Total time spent is greater than 50% in coordination of care (as documented) at patient's floor/unit and/or counseling patient: Total time spent with greater than 50% in coordination of care (as documented) at patient's floor/unit and/or counseling patient: less than 15 minutes
[2023-06-06 08:53] VITALS: BP 119/70; PULSE 86; RESP 16; TEMP 36.9
[2023-06-06] MEDS: IBUPROFEN 400 MG TABLET 800 MG PO (08:53)
[2023-06-06] MEDS: DOCUSATE SODIUM 100 MG CAPSULE PO (08:54)
[2023-06-06 09:13] VITALS: RESP 16
--- NOTE | 2023-06-06 13:10 | W.PC.ACHO ---
Registration Status: ADM IN Primary Language: Portuguese Preferred Language: Portuguese Active Medications Generic Name Dose Route Start Last Admin Trade Name Freq PRN Reason Stop Dose Admin Al Hydroxide/Mg Hydroxide 2,400 mg 06/03/23 11:29 Magnesium Hydroxide 2,400 Mg/10 Ml Oral.Susp PO Q6H PRN Dyspepsia Docusate Sodium 100 mg 06/04/23 09:00 06/06/23 08:54 Docusate Sodium 100 Mg Capsule PO 100 mg BID VILMA Administration Enoxaparin Sodium 40 mg 06/03/23 23:00 06/05/23 23:32 Enoxaparin Sodium 40 Mg/0.4 Ml Syringe SUBQ 40 mg Q24H VILMA Administration Lactated Ringer's 1,000 mls @ 125 mls/hr 06/03/23 11:30 06/03/23 12:24 Lactated Ringers IV Not Given .Q8H VILMA Ibuprofen 800 mg 06/04/23 12:00 06/06/23 08:53 Ibuprofen 400 Mg Tablet PO 800 mg Q8H PRN Administration Pain Ondansetron HCl 4 mg 06/03/23 11:29 Ondansetron Pf 4 Mg/2 Ml Vial IV Q6H PRN Nausea And Vomiting Ondansetron HCl 4 mg 06/03/23 11:29 Ondansetron 4 Mg Rapdis Tablet PO Q6H PRN Nausea And Vomiting Oxycodone/Acetaminophen 1 tab 06/03/23 11:20 Oxycodone Hcl/Acetaminophen 5mg/325mg PO Q4H PRN Pain Scale 4-6 Oxycodone/Acetaminophen 2 tab 06/03/23 11:20 Oxycodone Hcl/Acetaminophen 5mg/325mg PO Q4H PRN Pain Scale 7-10 Senna 17.2 mg 06/03/23 20:00 Sennosides 8.6 Mg Tablet PO QHS PRN Constipation Simethicone 80 mg 06/03/23 11:29 Simethicone 80 Mg Tab.Chew PO QID PRN Abdominal Distention Respiratory Oxygen Delivery Method Room Air Oxygen Delivery Method Room Air Oxygen Delivery Method Room Air Cardiology Heart Sounds Strong,Regular Heart Sounds Strong,Regular Bowels Bowel Pattern No Bowel Movement Renal Bladder Pattern Continent Bladder Pattern Continent
--- NOTE | 2023-06-06 14:54 | PC.NURSE ---
LC into room education completed. Bilateral nipples reported to be tender and now very sore . Assessment reveals excoriated nipples, red and raw in appearance. Reviewed best positioning and deeper latching to aid in nipple healing. Hands on demo having mother watch and return demo. Parents work well together to have latch be successful. Mom allowing a shallow latch as didn't want to hurt the baby . Reviewed difference in shallow latch and deep latch. Deep latch allowing for adequate milk removal and comfort while shallow leads to hungry baby, incomplete emptying and damaged nipples. Pt works for latch at next feeding and and is successful with minimal assistance. Given lanolin, and shells for nipple healing. To return 06/07/2023 for follow up.
--- NOTE | 2023-06-16 | DS_ITS ---
DISCHARGE DATE: 06/16/2023 PRIMARY DIAGNOSES: 1. Intrauterine at 38 4/7 weeks. 2. Spontaneous rupture of membranes. 3. Breach presentation. PROCEDURE: section. HOSPITAL COURSE: As expected. Please see chart for full details. LABORATORY DATA: Please see chart. COMPLICATIONS: None. DISCHARGE CONDITION: Stable. CONSULTATION: Anesthesia. DISCHARGE INSTRUCTIONS: 1. Diet: Regular. 2. Medications: a. Percocet 5/325 one to two p.o. every 4-6 hours p.r.n. pain. b. Motrin 800 one p.o. every 8 hours p.r.n. pain. 3. Followup in one week. Restrictions: Pelvic rest for 6 weeks. No heavy lifting. May drive when pain free and no longer on narcotics. MTDD
== END 2023-06-06 15:00 | disposition home or self-care (01) | DRG 540 ==
PROVIDERS: Obstetrics & Gynecology; Admitting Provider Midwife; Visit Provider Midwife
PROC: 10D00Z1 Extraction of Products of Conception, Low, Open Approach (ICD-10-PCS; CPT 59514; principal; 2023-06-03 09:30)
DX: O32.1XX0 Maternal care for breech presentation, not applicable or unspecified (principal); O42.92 Full-term premature rupture of membranes, unspecified as to length of time between rupture and onset of labor; Z37.0 Single live birth; Z3A.38 38 weeks gestation of pregnancy; O36.63X0 Maternal care for excessive fetal growth, third trimester, not applicable or unspecified
CPT/HCPCS: 36415; 51702; 76815; 80307; 81001; 85025; 86850; 86900; 86901; 96372; 96374; 96375; 96376

== ENCOUNTER 2024-07-11 09:54 | Outpatient (OUT) | payer BC, SELFPAY ==
--- NOTE | 2024-07-11 09:58 | US_ITS ---
[address] [address] Patient Name: ARIEL JOINER MRN: [id number] date: 2000 Sex: F Assigned Patient Location: US Current Patient Location: US Accession/Order Number: [id number] Exam Date: 07/11/2024 10:00 Report Date: 07/11/2024 11:40 At the request of: LALY PRADO Procedure: US OB anatomy EXAMINATION: US OB anatomy HISTORY: Positive Test COMPARISON: No relevant comparison available. TECHNIQUE: Transabdominal sonographic examination was performed for obstetrical and evaluation. FINDINGS: Number: 1 Heart Rate: 153.41 bpm H.B. /min Amniotic Fluid Volume: Subjectively normal Placental Location: Posterior fundal, grade 0 Cervix Length: 4.24 cm , closed Normal anatomy: Lateral ventricles, nose, lips, orbits, four-chamber heart, RVOT, LVOT, diaphragm, stomach, kidneys, abdominal cord insertion, bladder, umbilical arteries, three-vessel cord, spine, extremities Nonvisualization: Cerebellum, posterior fossa BIOMETRY: BPD: 7.01 cm; 28 weeks 1 day; HC: 26.04 cm; 28 weeks 2 days; AC: 23.87 cm; 28 weeks 1 day; FL: 4.96 cm; 26 weeks 5 days; EFW:1112.06 g; 2 lbs. 7 oz. FL/AC: 20.78 FL/BPD: 70.75 HC/AC: 1.09 GESTATIONAL AGE: Age by EDC: Unknown Age by current US: 27 weeks 6 days KRYSTINA by current US: 2024-10-04 US/US OB anatomy IMPRESSION: Nonvisualization the cerebellum, posterior fossa related to skull calcification and gestational age Otherwise normal anatomy scan *Reference: [facility] Practice Guideline for the performance of Obstetric Ultrasound Examinations, April 08, 2007. Electronically authenticated by: SHANA CUMMINS Date: 07/11/2024 11:40
--- OUTSIDE RECORDS SUMMARY | 2024-07-11 10:00 | XMS_ITS | CCD ---
Author Organization [facility] Care Team Providers Care Hard Candy Spinner Name Role Phone LALY PRADO Attending Unavailable LALY PRADO Referring Unavailable LALY PRADO Attending Unavailable FLORLALY Coe Attending Unavailable FLORO, LALY Katz Attending Unavailable FLOROLALY Attending Unavailable Results Test Name Value Interpretation Reference Range Facil ity US OB FOLLOW UP TRANSABDOMIN AL APPROACHon 05-23-2023 US OB FOLLOW UP TRANSABDOMINAL APPROACH EXAM: US OB FOLLOW UP TRANSABDOMINAL APPROACH [id number] CLINICAL INDICATION: Growth COMPARISON: 04/18/2023, showing a single intrauterine at 32 weeks. FINDINGS: Transabdominal imaging was performed. A single living intrauterine demonstrates spontaneous movement. The cervix is not well seen. heart rate is 132 beats per minute. Amniotic fluid index is 23.2 cm, 93rd percentile. Fetus is in breech position. The placenta is anterior, grade 1. Measurements include: biparietal diameter 8.9 cm, head circumference 32.5 cm, abdominal circumference 33.1 cm and femur length 6.8 cm. This calculates to a mean gestational age by ultrasound of 36 weeks 0 days. Estimated date of delivery is 06/20/2023. Estimated weight is 2892 g (6 pounds 6 ounces). Estimated weight percentile is 37%. On the prior study estimated weight was 4 pounds 4 ounces, which was 48th percentile. There are no gross abnormalities however please note that ultrasound cannot detect all anomalies. IMPRESSION: Single live intrauterine , estimated age 36 weeks. See details above. ELECTRONICALLY SIGNED BY: Simón De La Cruz MD Normal Not Available Encounters Encounter Date Encounter Type Care Provider Facility Start: 07-18-2023 End: 07-19-2023 ambulatory LALY L FLORO Not Available Start: 06-20-2023 End: 06-21-2023 ambulatory LALY Gianna FLORO Not Available Start: 06-11-2023 End: 06-11-2023 ambulatory LALY L FLORO Not Available Start: 05-28-2023 End: 05-29-2023 ambulatory LALY L FLORO Not Available Start: 05-23-2023 End: 05-24-2023 ambulatory LALY L FLORO Not Available Start: 05-16-2023 End: 05-17-2023 ambulatory LALY L FLORO Not Available Payers Date Payer Category Payer Medicaid [id number] 2019 Unknown [id number] 2000 Unknown [id number] [id number] 2000 Unknown [id number] 2000 Unknown [id number] 2000 Unknown [id number] 2000 Unknown [id number] 2000 Unknown [id number] Summary Purpose Family History No Family History Records Found Advance Directives No Advanced Directives Records Found Additional Source Comments INFORMATION SOURCE (unrecogn ized section and content) DATE CREATED AUTHOR 07/22/2023 [facility] EPIC FOR RECORDS PERTAINING TO PATIENTS WHO ARE OR HAVE BEEN ENROLLED IN A CHEMICAL DEPENDENCY/SUBSTANCEABUSE PROGRAM, SOME INFORMATION MAY BE OMITTED. This clinical summary was aggregated from multiple sources. Caution should be exercised in using it in the provision of clinical care. This summary normalizes information from multiple sources, and as a consequence, information in this document may materially change the coding, format and clinical context of patient data. In addition, data may be omitted in some cases. CLINICAL DECISIONS SHOULD BE BASED ON THE PRIMARY CLINICAL RECORDS. [facility] provides no warranty or guarantee of the accuracy or completeness of information in this document.
== END 2024-07-11 09:55 | disposition home or self-care (01) ==
LOC: US 09:54
PROVIDERS: Visit Provider Midwife
DX: Z32.01 Encounter for pregnancy test, result positive (principal); Z3A.27 27 weeks gestation of pregnancy
CPT/HCPCS: 76805

== ENCOUNTER 2024-08-01 11:11 | Outpatient (OUT) | payer BC, SELFPAY ==
--- NOTE | 2024-08-01 11:14 | US_ITS ---
[address] [address] Patient Name: ARIEL JOINER MRN: [id number] date: 2000 Sex: F Assigned Patient Location: US Current Patient Location: US Accession/Order Number: [id number] Exam Date: 08/01/2024 11:20 Report Date: 08/01/2024 12:28 At the request of: LALY PRADO Procedure: US OB growth EXAMINATION: US OB growth HISTORY: Related Condition third Trimester O26.93 COMPARISON: No relevant comparison available. FINDINGS: Heart Rate: 124.49 bpm Amniotic Fluid Volume: 14.3 cm Number: 1 Position: Cephalic presentation, longitudinal lie BIOMETRY: BPD: 7.90 cm; 31 weeks 5 days; 66.20 % HC: 29.01 cm; 32 weeks 0 days; 43.60 % AC: 28.19 cm; 32 weeks 2 days; 83.60 % FL: 5.49 cm; 29 weeks 0 days; 3.50 % EFW: 1714.74 g; 48.50 %, 3 lbs. 12 oz. FL/AC: 19.46 FL/BPD: 69.42 HC/AC: 1.03 GESTATIONAL AGE: Age by EDC: 30 weeks 6 days KRYSTINA by EDC: 2024-10-04 Age by US: 31 weeks 2 days KRYSTINA by US: 2024-10-01 US/US OB growth IMPRESSION: Femur length at the 4th percentile, otherwise normal interval growth Electronically authenticated by: SHANA CUMMINS Date: 08/01/2024 12:28
--- OUTSIDE RECORDS SUMMARY | 2024-08-01 11:28 | XMS_ITS | CCD ---
Author Organization [place] [employer] [facility] INFORMATION TECHNOLOGY TECHNICIAN [facility] Care Team Providers Care Cia Agent Name Role Phone LALY PRADO Attending Unavailable Encounters Encounter Date Encounter Type Care Provider Facility Start: 07-16-2024 End: 07-16-2024 ambulatory LALY PRADO Not Available Payers Date Payer Category Payer Medicaid [id number] 2019 Unknown [id number] 2000 Unknown [id number] Summary Purpose Family History No Family History Records Found Advance Directives No Advanced Directives Records Found Additional Source Comments INFORMATION SOURCE (unrecogn ized section and content) DATE CREATED AUTHOR 07/22/2024 [facility] EPIC FOR RECORDS PERTAINING TO PATIENTS [...] BE BASED ON THE PRIMARY CLINICAL RECORDS. [facility] [employer] provides no warranty or guarantee of the accuracy or completeness of information in this document.
== END 2024-08-01 11:12 | disposition home or self-care (01) ==
LOC: US 11:11
PROVIDERS: Visit Provider Midwife
DX: O26.93 Pregnancy related conditions, unspecified, third trimester (principal); Z3A.30 30 weeks gestation of pregnancy
CPT/HCPCS: 76816

== ENCOUNTER 2024-09-25 14:30 | Outpatient (OUT) | payer BC, MEDICAID, SELFPAY ==
[2024-09-25 14:43] VITALS: BP 129/79; PULSE 83
== END 2024-09-25 15:19 | disposition home or self-care (01) ==
LOC: FBC 09-29 14:56 → FBCO 09-29 14:56
PROVIDERS: Visit Provider Midwife
DX: O47.1 False labor at or after 37 completed weeks of gestation (principal); Z3A.38 38 weeks gestation of pregnancy
CPT/HCPCS: 59025

== ENCOUNTER 2024-09-29 05:33 | Inpatient (IN) | payer BC, MEDICAID, SELFPAY ==
[2024-09-29] VITALS (35 sets, daily range): BP systolic 87–148; BP diastolic 41–77; PULSE 78–117; TEMP 36.3–37.1; O2SAT 90–98
--- OUTSIDE RECORDS SUMMARY | 2024-09-29 05:36 | XMS_ITS | CCD ---
Author Organization [facility] Care Team Providers Care Practice Professional Name Role Phone Ofelia Aceves MD Primary Care Provider [phone] LALY BUI Attending Unavailable LALY BUI Referring Unavailable LALY BUI Attending Unavailable LALY BUI Attending Unavailable MARIO GAVIN Attending Unavailable LALY BUI Attending Unavailable Medications Current Medications Medication Drug Class(es) Dates Sig (Normalized) Sig (Original) 28-0.8 MG tablet (14 sources) Start: 10-18-2023 take 1 tablet by mouth in the morning 28-0.8 MG tablet Indications: examination following delivery Take 1 tablet by mouth in the morning. 30 tablet 4 10/18/2023 Active Completed/Discontinued Medications Medication Drug Class(es) Dates Sig (Normalized) Sig (Original) norethindrone 0.35 mg oral tablet (2 sources) Start: 07-18-2023 End: 07-16-2024 take 1 tablet by mouth in the morning norethindrone (Micronor) 0.35 MG tablet Indications: (infant) , Unwanted fertility Take 1 tablet (0.35 mg) by mouth in the morning. 90 tablet 3 07/18/2023 07/16/2024 Discontinued (Therapy completed) sertraline 25 mg oral tablet (2 sources) Serotonin Reuptake Inhibitor Start: 06-20-2023 End: 07-16-2024 take 1 tablet by mouth in the morning sertraline (Zoloft) 25 MG tablet Indications: Anxiety, generalized (CMS/HCC) Take 1 tablet (25 mg) by mouth in the morning. 30 tablet 2 06/20/2023 07/16/2024 Discontinued (Therapy completed) Problems Problem Classification Problem Date Documented Da te Episodic/Chronic Anxiety disorders (2 sources) Generalized anxiety disorder; Translations: [Generalized anxiety disorder] 08-28-2024 Chronic Other complications of (4 sources) Finding related to ; Translations: [ related conditions, unspecified, third trimester] 08-11-2024 Episodic Other and delivery including normal (6 sources) Normal ; Translations: [Encounter for supervision of other normal , third trimester] 08-11-2024 Episodic Other screening for suspected conditions (not mental disorders or infectious disease) (4 sources) Patient encounter status; Translations: [Encounter for screening for diabetes mellitus] 07-16-2024 Episodic Residual codes; unclassified (2 sources) Gestation period, 37 weeks; Translations: [37 weeks gestation of ] 09-18-2024 Episodic Unclassified (11 sources) OB Reminders Onset: 08-11-2024 08-11-2024 Results Test Name Value Interpretation Reference Range Facility Urinalysis macro (dipstick) panel (U)on 09-18-2024 Glucose, UA Negative Negative - 1999(110) ++++ mg/dL [facility] Protein, UA 1+ Negative - 1999(20) ++++ [facility] FOLLOW UP TRANSABDOMIN AL APPROACHon 08-11-2024 US OB FOLLOW UP TRANSABDOMINAL APPROACH EXAM: US OB FOLLOW UP TRANSABDOMINAL APPROACH HISTORY: Abnormal femur on outside study. COMPARISON: OB ultrasound 08/01/2024 - Images only. TECHNIQUE: Two-dimensional transabdominal grayscale ultrasound imaging of the pelvis was performed. FINDINGS: Gestation: Single Presentation: Cephalic Cardiac Activity: 143 beats per minute Placental Location: Posterior fundal with no sonographic abnormalities identified. Cervical Length: 3.6 cm Amniotic Fluid Index: 13.9 cm MEASUREMENTS: BPD: 8.3 cm EGA: 31 weeks 1 days HC: 29.6 cm EGA: 32 weeks 5 days AC: 6.0 cm EGA: 31 weeks 2 days FL: 28.5 cm EGA: 32 weeks 4 days HC/AC Ratio: 1.04 The gestational age by today's ultrasound is 32 weeks 4 days (+/- eight days gestation). Estimated Weight: 1935 grams, ( 4 lb 4 oz). Weight Percentile for gestational age: 39 % The bilateral femurs appear unremarkable. IMPRESSION: 1. Single, live intrauterine gestation 32 weeks, 2 days by LMP. Today's ultrasound measurements correlate with a gestational age of 32 weeks 4 days. Estimated weight is 1935 grams, ( 4 lb 4 oz) which correlates to 39 %. This is with normal limits. KRYSTINA is 10/02/2024. 2. Bilateral femurs appear unremarkable and measure within normal limits. Electronically Signed:Electronicall y signed by NIESHA TRUJILLO II, MD, PHD at 12-Aug-2024 08:34:32 AM [facility] Normal Not Available CBC panel Auto (Bld)on 07-17 Erythrocyte distribution width (RBC) [Ratio] 12.7 % 11.0 - 15.0 % [facility] Hematocrit (Bld) [Volume fraction] 36.6 % 35.0 - 45.0 % [facility] Hem[facility] (Bld) [Mass/Vol] 11.9 g/dL 11.7 - 15.5 g/dL [facility] MCH (RBC) [Entitic mass] 28.2 pg 27.0 - 33.0 pg [facility] MCHC (RBC) [Mass/Vol] 32.5 g/dL 32.0 - 36.0 g/dL [facility] Comment on above: For adults, a slight decrease in the calculated MCHC value (in the range of 30 to 32 g/dL) is most likely not clinically significant; however, it should be interpreted with caution in correlation with other red cell parameters and the patient's clinical condition. MCV (RBC) [Entitic vol] 86.7 fL 80.0 - 100.0 fL [facility] Platelet mean volume (Bld) [Entitic vol] 11.5 fL 7.5 - 12.5 fL [facility] Platelets (Bld) [#/Vol] 254 10*3/uL [facility] RBC (Bld) [#/Vol] 4.22 10*6/uL [facility] WBC (Bld) [#/Vol] 10.7 10*3/uL [facility] Laboratory - Blood bankon ABO group Nom (Bld) O [facility] Blood group antibody screen Ql Detected [facility] Comment on above: Reference range No antibodies detected This assay is a screening test for the detection of red blood cell antibodies. The test is not to be used for pretransfusion screening or for the medical management of an alloimmunized . Rh Nom (Bld) Positive [facility] are Comment on above: For additional information, please refer to http://Storone.Aseptia/faq/EMP317 (This link is being provided for informational/ educational purposes only.) Laboratory - Chemistry and C hemistry - challengeon 07-17-2024 Glucose 1 Hr post 50 g glucose PO [Mass/Vol] 116 mg/dL [facility] - 135 mg/dL [facility] TSH Qn 1.09 m[IU]/L mIU/L [facility] are Comment on above: Reference Range > or = 20 Years 0.40-4.50 Ranges First trimester 0.26-2.66 Second trimester 0.55-2.73 Third trimester 0.43-2.91 Laboratory - Hematology and Cell countson 07-17-2024 HbA1c (Bld) [Mass fraction] 5 % [facility] [place] Comment on above: For the purpose of s creening for the presence of diabetes: <5.7% Consistent with the absence of diabetes 5.7-6.4% Consistent with increased risk for diabetes (prediabetes) > or =6.5% Consistent with diabetes This assay result is consistent with a decreased risk of diabetes. Currently, no consensus exists regarding use of hemoglobin A1c for diagnosis of diabetes in children. According to [place] [employer] (ADA) guidelines, hemoglobin A1c <7.0% represents optimal control in non- diabetic patients. Different metrics may apply to specific patient populations. Standards of Medical Care in Diabetes(ADA). Laboratory - Microbiology an d Antimicrobial susceptibilityon 07-17-2024 HBV surface Ag IA Ql Non-Reactive NON-REACTIVE [facility] Comment on above: For additional information, please refer to http://Storone.Neurolink/faq/UBM294 (This link is being provided for informational/ educational purposes only.) HCV Ab IA Ql Non-Reactive NON-REACTIVE [facility] Comment on above: HCV antibody was non-reactive. There is no laboratory evidence of HCV infection. In most cases, no further action is required. However, if recent HCV exposure is suspected, a test for HCV RNA (test code 27910) is suggested. For additional information please refer to http://education.Neurolink/faq/ZGK33d2 (This link is being provided for informational/ educational purposes only.) HIV 1+2 Ab+HIV1 p24 Ag IA Ql Non-Reactive NON-REACTIVE [facility] Comment on above: HIV-1 antigen and HI V-1/HIV-2 antibodies were not detected. There is no laboratory evidence of HIV infection. PLEASE NOTE: This information has been disclosed to you from records whose confidentiality may be protected by state law. If your state requires such protection, then the state law prohibits you from making any further disclosure of the information without the specific written consent of the person to whom it pertains, or as otherwise permitted by law. A general authorization for the release of medical or other information is NOT sufficient for this purpose. For additional information please refer to http://Storone.Neurolink/faq/JAO876 (This link is being provided for informational/ educational purposes only.) The performance of this assay has not been clinically validated in patients less than 2 years old. Reagin Ab RPR Ql (S) Non-Reactive NON-REACTIVE [facility] Rubella virus IgG Qn (S) [IU]/mL Low Index [facility] Comment on above: Index Interpretation ----- <0.90 Not consistent with immunity 0.90-0.99 Equivocal > or = 1.00 Consistent with immunity The presence of rubella IgG antibody suggests immunization or past or current infection with rubella virus. No Panel Informationon 07-17 Interpretation and review of laboratory results Abnormal [facility] MULTIPLE COLLECTION TIMES FOR SAME TEST TYPE. [facility] Organization Information Site ID: QPT Name: [facility] Address: [address] [place] [address], [address] [place] [id number] Director: Antonio David MD [facility] Vital Signs Date Time Vital Sign Value Performing Clinician Timothy zuleta 09-18-2024 11:32-0400 Body mass index (BMI) [Ratio] 30.44 kg/m2 Mario Gavin MD Work Phone: [facility] 09-18-2024 11:32-0400 Body weight 81.19 kg Mario Gavin MD Work Phone: [facility] 09-18-2024 11:32-0400 Diastolic blood pressure 76 mm[Hg] Mario Gavin MD Work Phone: [facility] 09-18-2024 11:32-0400 Systolic blood pressure 122 mm[Hg] Mario Gavin MD Work Phone: [facility] 09-10-2024 11:34-0500 Body mass index (BMI) [Ratio] 32.65 kg/m2 Laly Floro CNM Work Phone: [facility] 09-10-2024 11:34-0500 Body weight 87.09 kg Laly Floro CNM Work Phone: [facility] 08-28-2024 15:30-0500 Body mass index (BMI) [Ratio] 32.14 kg/m2 Laly Floro CNM Work Phone: [facility] 08-28-2024 15:30-0500 Body weight 85.73 kg Laly Floro CNM Work Phone: [facility] 08-28-2024 15:30-0500 Diastolic blood pressure 70 mm[Hg] Laly Floro CNM Work Phone: [facility] 08-28-2024 15:30-0500 Systolic blood pressure 120 mm[Hg] Laly Floro CNM Work Phone: [facility] 08-11-2024 16:53-0500 Body mass index (BMI) [Ratio] 31.46 kg/m2 Laly Floro CNM Work Phone: [facility] 08-11-2024 16:53-0500 Body weight 83.92 kg Laly Floro CNM Work Phone: [facility] 08-11-2024 16:53-0500 Diastolic blood pressure 70 mm[Hg] Laly Floro CNM Work Phone: [facility] 08-11-2024 16:53-0500 Systolic blood pressure 110 mm[Hg] Laly Floro CNM Work Phone: [facility] 07-16-2024 11:27-0500 Body mass index (BMI) [Ratio] 30.27 kg/m2 Laly Raysao CNM Work Phone: [facility] 07-16-2024 11:27-0500 Body weight 80.74 kg Laly Raysao CNM Work Phone: [facility] 07-16-2024 11:27-0500 Diastolic blood pressure 80 mm[Hg] Laly Raysao CNM Work Phone: [facility] 07-16-2024 11:27-0500 Systolic blood pressure 118 mm[Hg] Laly Raysao CNM Work Phone: [facility] Encounters Encounter Date Encounter Type Care Provider Facility Start: 09-18-2024 End: 09-18-2024 Bamboo flowsheet Mario Gavin MD Work Phone: [facility] Start: 09-18-2024 End: 09-18-2024 Bamboo flowsaidee Gavin MD Work Phone: [facility] Start: 09-18-2024 End: 09-18-2024 Office outpatient visit 25 minutes Mario Gavin MD Work Phone: [facility] Comment on above: 37 weeks gestation o f Start: 09-18-2024 End: 09-18-2024 ambulatory MARIO GAVIN Not Available Start: 09-10-2024 End: 09-10-2024 Bamboo flowsheet Laly L Floro CNM Work Phone: [facility] Start: 09-10-2024 End: 09-10-2024 Bamboo flowsheet Laly L Floro CNM Work Phone: [facility] Start: 09-10-2024 End: 09-10-2024 ambulatory LALY L FLORO Not Available Start: 09-10-2024 End: 09-10-2024 Office outpatient visit 15 minutes Laly L Floro CNM Work Phone: [facility] Comment on above: screening for streptococcus B Start: 08-28-2024 End: 08-28-2024 Office outpatient visit 15 minutes Laly L Floro CNM Work Phone: [facility] Comment on above: Encounter for superv ision of other normal , third trimester (Primary Dx); History of section; Anxiety, generalized (CMS/HCC) Start: 08-28-2024 End: 08-28-2024 ambulatory LALY L FLORO Not Available Start: 08-28-2024 End: 08-28-2024 Bamboo flowsheet Laly L Floro CNM Work Phone: [facility] Start: 08-28-2024 End: 08-28-2024 Bamboo flowsheet Laly L Floro CNM Work Phone: [facility] Start: 08-11-2024 End: 08-11-2024 Office outpatient visit 15 minutes Laly L Floro CNM Work Phone: [facility] Comment on above: related co ndition in third trimester (Primary Dx); Encounter for supervision of other normal , third trimester; History of section Start: 08-11-2024 End: 08-11-2024 ambulatory LALY L FLORO Not Available Start: 08-11-2024 End: 08-11-2024 Bamboo flowsheet Laly L Floro CNM Work Phone: [facility] Start: 08-11-2024 End: 08-11-2024 Bamboo flowsheet Laly L Floro CNM Work Phone: [facility] Start: 07-16-2024 End: 07-16-2024 ambulatory Laly L Floro CNM Work Phone: [facility] Comment on above: GA: 28w4d Procedures Date Procedure Procedure Detail Performing Clinician Start: 09-18-2024 Urnls dip stick/tabl et rgnt non-auto w/o micrscp Mario Gavin MD Work Phone: Start: 07-16-2024 Antibody screen rbc each serum technique Laly Bui CNM Work Phone: Start: 07-16-2024 GLUCOSE, GESTATIONAL SCREEN (50G)-135 CUTOFF Laly Bui CN Work Phone: Start: 07-16-2024 Hemoglobin glycosyla carrol a1c Laly Bui CN Work Phone: Start: 07-16-2024 Iaad ia hepatitis b surface antigen Laly Bui CN Work Phone: Start: 07-16-2024 TSH W/REFLEX TO FT4 Marina fabián Bui CN Work Phone: H/O: section History of section Laly Bui CNM Work Phone: H/O: section History of section Laly Bui CN Work Phone: Plan of Treatment Date Care Activity Detail Author Start: 09-25-2024 End: 09-25-2024 Patient encounter procedure 09/25/2024 11:30 AM EDT Routine [facility] [address] [place] [phone] Ramya Laly Katz CN [address] [place] [address] [facility] Start: 09-18-2024 End: 09-18-2024 Patient encounter procedure 09/18/2024 11:45 AM EDT Routine [facility] [address] [place] [phone] Mario Gavin MD [address] [place] [address] 37 weeks gestation of [facility] Comment on above: 37 weeks gestation o f Start: 09-17-2024 End: 09-17-2024 Patient encounter procedure 09/17/2024 11:45 AM EDT Routine [facility] [address] [place] [id number] Mario Gavin MD [address] [place] [address] [facility] Start: 09-10-2024 End: 09-10-2025 STREPTOCCOUS, GROUP B CULTURE STREPTOCCOUS, GROUP B CULTURE Lab Routine screening for streptococcus B Expected: 09/10/2024 (Approximate), Expires: 09/10/2025 [facility] Work Phone: Comment on above: Expected: 09/10/2024 (Approximate), Expires: 09/10/2025 Start: 09-10-2024 End: 09-10-2024 Patient encounter procedure 09/10/2024 11:30 AM EST Routine [facility] [address] [facility] [place] [phone] Laly Bui, CNM [address] [place] [address] [facility] Start: 08-27-2024 End: 08-27-2024 Patient encounter procedure 08/27/2024 1:30 PM EST Routine [facility] [address] [facility] [place] [address] Laly Bui, CNM [address] [place] [address] [facility] Start: 08-26-2024 End: 08-26-2024 Patient encounter procedure 08/26/2024 1:30 PM EST Routine [facility] [address] [facility] [place] [address] Laly Bui, CNM [address] [place] [address] [facility] Start: 08-11-2024 End: 08-11-2024 Professional / ancillary services management 08/11/2024 5:30 PM EST Ancillary Procedure [facility] [address] [place] [phone] [facility] Start: 08-11-2024 End: 08-11-2024 Patient encounter procedure 08/11/2024 5:00 PM EST Routine [facility] [address] [place] [address] Laly Bui CNM [address] [place], [place] [id number] Arrived [facility] Comment on above: Arrived Start: 07-16-2024 End: 07-16-2025 Bacteria identified in Urine by Culture Urine culture Microbiology Routine examination or test, positive result Expected: 07/16/2024 (Approximate), Expires: 07/16/2025 [facility] Comment on above: Expected: 07/16/2024 (Approximate), Expires: 07/16/2025 Start: 07-16-2024 End: 07-16-2025 DRUG TOX MONITORIGN 6 W/ CONF,URINE DRUG TOX MONITORIGN 6 W/ CONF,URINE Lab Routine examination or test, positive result Expected: 07/16/2024 (Approximate), Expires: 07/16/2025 [facility] Work Phone: Comment on above: Expected: 07/16/2024 (Approximate), Expires: 07/16/2025 Start: 07-16-2024 End: 07-16-2025 Neisseria gonorrhoeae DNA [Presence] in Cervical mucus by YASMINE with probe detection C. trachomatis / N. gonorrhoeae, DNA probe Pathology and Cytology Routine examination or test, positive result Expected: 07/16/2024 (Approximate), Expires: 07/16/2025 [facility] Comment on above: Expected: 07/16/2024 (Approximate), Expires: 07/16/2025 Start: 07-16-2024 End: 07-16-2025 URINALYSIS MICROSCOPIC URINALYSIS MICROSCOPIC Lab Routine examination or test, positive result Expected: 07/16/2024 (Approximate), Expires: 07/16/2025 [facility] Comment on above: Expected: 07/16/2024 (Approximate), Expires: 07/16/2025 Start: 07-16-2024 End: 07-16-2025 US for US OB SCAN FOR GROWTH Imaging Routine related condition in third trimester Expected: 07/16/2024, Expires: 07/16/2025 [facility] Comment on above: Expected: 07/16/2024 , Expires: 07/16/2025 Payers Date Payer Category Payer Medicaid [id number] 2019 Medicaid [id number] 2019 Unknown [id number] 1999 Unknown [id number] 2.16.84 [id number] 1999 Unknown [id number] 2.16.84 [id number] 1999 Unknown [id number] 2.16.84 [id number] 1999 Unknown [id number] 2.16.84 [id number] 1999 Unknown [id number] 2.16.84 [id number] 1999 Unknown [id number] 2.16.84 [id number] Social History Date Type Detail Facility Start: 06-11-2023 Tobacco smoking stat [facility] Never smoked tobacco [facility] Start: 06-11-2023 Tobacco use and exposure Smokeless t obacco non-user [facility] Start: 07-16-2024 Alcoholic beverage intake Ex-drinker (finding) [facility] Start: 07-18-2023 End: 07-16-2024 History of Social function [facility] Start: 07-18-2023 End: 07-16-2024 Tobacco use panel [facility] The thought of harmi ng myself has occurred to me Never [facility] Start: 12-21-2022 Alcohol Comment Caffeine: none [facility] Start: 01-12-2024 [facility] Start: 1999 Sex assigned at Female [facility] Start: 12-14-2022 Gender identity Identifies as female gender (finding) [facility] Goals Date Patient Goal Desired Activity /State Personal health goal History of Present illness Narrative 09-18-2024 Mario Gavin MD - 09/18/2024 11:45 AM EDT Note Date & Type Note Facility 09-18-2024 History of Presen t illness Narrative She is well Sched for repeat C/S 09/29 at [place] documented in this encounter [facility] History of Present illness Narrative 09-10-2024 Laly Bui CNM - 09/10/2024 11:30 AM EST Note Date & Type Note Facility 09-10-2024 History of Presen t illness Narrative Subjective No chief complaint on file. Crow Mercedes is a 23 y.o. at 36w4d with a working estimated date of delivery of 10/04/2024, by Ultrasound who presents for a routine visit. She denies vaginal bleeding, leakage of fluid, decreased movements, or contractions. OB History Para Term AB Living 3 1 1 1 1 SAB IAB Ectopic Multiple Live Births 1 1 # Outcome Date GA Lbr Darwin/2nd Weight Sex Type Anes PTL Lv 3 Current 2 Term 06/03/23 38w4d 9 lb 5 oz F CS-LTranv EMERITA 1 SAB 11/2020 Her is complicated by: late care, history of c/s Objective Physical Exam weight: 192 lb Expected Total Weight Gain: Could not be calculated Pregravid BMI: Could not be calculated Urine protein-negative Urine glucose-negative Assessment/Plan Continue vitamin. Labs reviewed. GBS taken. Expected mode of delivery Follow up in 1 week for a routine visit. documented in this encounter [facility] History of Present illness Narrative 08-28-2024 Laly Bui CNM - 08/28/2024 3:30 PM EST Note Date & Type Note Facility 08-28-2024 History of Presen t illness Narrative Subjective No chief complaint on file. Crow Mercedes is a 23 y.o. at 34w5d with a working estimated date of delivery of 10/04/2024, by Ultrasound who presents for a routine visit. She denies vaginal bleeding, leakage of fluid, decreased movements, or contractions. OB History Para Term AB Living 3 1 1 1 1 SAB IAB Ectopic Multiple Live Births 1 1 # Outcome Date GA Lbr Darwin/2nd Weight Sex Type Anes PTL Lv 3 Current 2 Term 06/03/23 38w4d 9 lb 5 oz F CS-LTranv EMERITA 1 SAB 11/2020 Her is complicated by: Objective Physical Exam weight: 189 lb Expected Total Weight Gain: Could not be calculated Pregravid BMI: Could not be calculated BP: 120/70 Urine protein-negative Urine glucose-negative Assessment/Plan Diagnoses and all orders for this visit: Encounter for supervision of other normal , third trimester History of section Anxiety, generalized (CMS/[facility]) Continue vitamin. Labs reviewed. GBS at 36 weeks Expected mode of delivery repeat section Follow up in 2 weeks for a routine visit. documented in this encounter [facility] History of Present illness Narrative 08-11-2024 Laly Bui CNM - 08/11/2024 5:00 PM EST Note Date & Type Note Facility 08-11-2024 History of Presen t illness Narrative Subjective No chief complaint on file. Crow Mercedes is a 23 y.o. at 32w2d with a working estimated date of delivery of 10/04/2024, by Ultrasound who presents for a routine visit. She denies vaginal bleeding, leakage of fluid, decreased movements, or contractions. OB History Para Term AB Living 3 1 1 1 1 SAB IAB Ectopic Multiple Live Births 1 1 # Outcome Date GA Lbr Darwin/2nd Weight Sex Type Anes PTL Lv 3 Current 2 Term 06/03/23 38w4d 9 lb 5 oz F CS-LTranv EMERITA 1 SAB 11/2020 Her is complicated by: late care Objective Physical Exam weight: 185 lb Expected Total Weight Gain: Could not be calculated Pregravid BMI: Could not be calculated BP: 110/70 Urine protein-negative Urine glucose-negative Assessment/Plan Diagnoses and all orders for this visit: related condition in third trimester Encounter for supervision of other normal , third trimester History of section Continue vitamin. Labs reviewed. GBS at 36 weeks Expected mode of delivery repeat C/S Follow up in 1 week for a routine visit. documented in this encounter [facility] History of Present illness Narrative 07-16-2024 Laly Bui CNM - 07/16/2024 11:30 AM EST Note Date & Type Note Facility 07-16-2024 History of Presen t illness Narrative Subjective Crow Mercedes is a 23 y.o. at 28w4d with a working estimated date of delivery of 10/04/2024, by Ultrasound who presents for an initial visit. This is unplanned. Patient Care Team: Ofelia Aceves MD as PCP - General (Family Medicine) OB History Para Term AB Living 3 1 1 1 1 SAB IAB Ectopic Multiple Live Births 1 1 # Outcome Date GA Lbr Darwin/2nd Weight Sex Type Anes PTL Lv 3 Current 2 Term 06/03/23 38w4d 9 lb 5 oz F CS-LTranv EMERITA 1 SAB 11/2020 Her is complicated by: late care, didn't know she was as she has been and didn't have a period Patient referred by self Gynecology History Last Pap The following portions of the chart were reviewed this encounter and updated as appropriate: Review of Systems Negative except \ Objective Physical Exam Expected Total Weight Gain: Could not be calculated Pregravid BMI: Could not be calculated Urine protein Urine glucose Labs 07/16/24 Assessment/Plan Diagnoses and all orders for this visit: examination or test, positive result - Hepatitis B surface antigen; Future - Rubella antibody, IgG; Future - CBC; Future - Antibody screen; Future - RPR; Future - Hemoglobin A1c; Future - TSH W/REFLEX TO FT4; Future - HIV-1 and HIV-2 antibodies; Future - ABO/Rh; Future - DRUG TOX MONITORIGN 6 W/ CONF,URINE; Future - Hepatitis C antibody; Future - Urine culture; Future - URINALYSIS MICROSCOPIC; Future - C. trachomatis / N. gonorrhoeae, DNA probe; Future Screening for diabetes mellitus (DM) - GLUCOSE, GESTATIONAL SCREEN (50G)-135 CUTOFF; Future related condition in third trimester - US OB SCAN FOR GROWTH; Future Blue education folder given. Patient educated on safe medication list. Genetic testing information given. Discussed the do's and don'ts in the blue folder. We discussed labs and what we draw and what we are testing for. Patient is also informed that we do a urine drug test. Patient also given office phone number and [facility] number to call in case of an emergency or after hours needs. PVU and all questions answered. We did discuss place of delivery. Patient should plan to go to [facility] for all services unless an emergency and they need to go to the closest ER. We can make other arrangements possibly if patient would like to deliver at another facility but I did explain I am now at [place] 100% of the time and would like to do all deliveries there. documented in this encounter [facility] Evaluation note Note Date & Type Note Facility Evaluation note Diagnosis related condition in third trimester- Primary Encounter for supervision of other normal , third trimester History of section Other postprocedural status documented in this encounter [facility] Healthcare Evaluation note Note Date & Type Note Facility Evaluation note Diagnosis examination or test, positive result Screening for diabetes mellitus (DM) Screening for diabetes mellitus related condition in third trimester documented in this encounter [facility] Healthcare Evaluation note Note Date & Type Note Facility Evaluation note Diagnosis Encounter for supervision of other normal , third trimester- Primary History of section Other postprocedural status Anxiety, generalized (CMS/HCC) documented in this encounter [facility] Healthcare Evaluation note Note Date & Type Note Facility Evaluation note Diagnosis screening for streptococcus B screening for Streptococcus B documented in this encounter [facility] Evaluation note Note Date & Type Note Facility Evaluation note Diagnosis 37 weeks gestation of documented in this encounter [facility] Summary Purpose Family History No Family History Records Found Advance Directives No Advanced Directives Records Found Additional Source Comments Care Teams (unrecognized sec tion and content) Practice Professional Relationship Specialty Start Date End Date Ofelia Aceves MD [address] [id number] PCP - General Family Medicine 05/09/23 Practice Professional Relationship Specialty Start Date End Date Ofelia Aceves MD [address] [address] PCP - General Family Medicine 05/09/23 Practice Professional Relationship Specialty Start Date End Date Ofelia Aceves MD [address] [address] PCP - General Family Medicine 05/09/23 Practice Professional Relationship Specialty Start Date End Date Ofelia Aceves MD [address] [address] PCP - General Family Medicine 05/09/23 Practice Professional Relationship Specialty Start Date End Date Ofelia Aceves MD [address] [address] PCP - General Family Medicine 05/09/23 Practice Professional Relationship Specialty Start Date End Date Ofelia Aceves MD [address] [address] PCP - General Family Medicine 05/09/23 Practice Professional Relationship Specialty Start Date End Date Ofelia Aceves MD [address] [id number] PCP - General Family Medicine 05/09/23 INFORMATION SOURCE (unrecogn ized section and content) DATE CREATED AUTHOR 09/21/[address] [facility] EPIC FOR RECORDS PERTAINING [...] BE BASED ON THE PRIMARY CLINICAL RECORDS. [employer] provides no warranty or guarantee of the accuracy or completeness of information in this document.
[2024-09-29 06:15] LABS: Basophils Percent Auto 0.2 % (0.2-2.0); Eosinophils Absolute Auto 0.1 10^3/uL (0.0-0.7); Eosinophils Percent Auto 0.5 % (0.9-7.0); Hemoglobin 10.4 g/dL (12.0-16.0); Immature Granulocytes Abs Auto 0.01 10^3/uL (0.00-0.03); Immature Granulocytes Pct Auto 0.1 % (0.0-0.5); Lymphocytes Absolute Auto 2.6 10^3/uL (1.2-3.8); Lymphocytes Percent Auto 28.4 % (20.5-60.0); Mean Corpuscular HGB Conc 32.5 g/dL (29.9-35.2); Mean Corpuscular Hemoglobin 26.3 pg (26.7-34.0); Mean Corpuscular Volume 80.8 fL (81.0-99.0); Mean Platelet Volume 11.4 fL (9.5-13.5); Monocytes Absolute Auto 0.9 10^3/uL (0.3-0.8); Monocytes Percent Auto 9.9 % (1.7-12.0); Neutrophils Absolute Auto 5.6 10^3/uL (1.4-6.5); Neutrophils Percent Auto 60.9 % (43.0-75.0); Platelet Count 242 10^3/uL (150-450); Red Blood Count 3.96 10^6/uL (4.20-5.40); Red Cell Distribution Width 14.6 % (11.0-15.0); White Blood Count 9.3 10^3/uL (4.0-11.0)
[2024-09-29] MEDS: LACTATED RINGER'S SOLUTION 1,000 ML 1000 ML IV ×2 (06:15→07:11)
[2024-09-29 06:16] LABS: Bilirubin Urine NEGATIVE (NEGATIVE); Blood Urine NEGATIVE (NEGATIVE); Clarity Urine CLEAR (CLEAR); Color Urine LT. YELLOW (YELLOW); Glucose Urine UA NEGATIVE (NEGATIVE); Ketones Urine NEGATIVE (NEGATIVE); Leukocyte Esterase Urine NEGATIVE (NEGATIVE); Nitrite Urine NEGATIVE (NEGATIVE); Protein Urine NEGATIVE (NEG/TRACE); Urobilinogen Urine 0.2 EU/dL (0.2-1.0)
[2024-09-29 06:22] LABS: Bacteria Urine NONE SEEN #/HPF (NONE SEEN); Crystals Seen? None Seen #/HPF (None Seen); Mucus Urine NONE SEEN (NONE SEEN); RBC Urine 0-2 #/HPF (0-2); Squamous Epithelial Cell Urine RARE #/LPF (NONE/RARE); WBC Urine 0-2 #/HPF (NONE SEEN)
[2024-09-29 06:23] LABS: Cast Seen? NONE SEEN #/LPF (NONE SEEN); Urine Culture Indicated NO
[2024-09-29 06:25] LABS: Amphetamine Screen Urine NEGATIVE (NEGATIVE); Barbiturates Screen Urine NEGATIVE (NEGATIVE); Benzodiazepines Screen Urine NEGATIVE (NEGATIVE); Buprenorphine Screen Urine NEGATIVE (NEGATIVE); Cannabinoid Screen Urine NEGATIVE (NEGATIVE); Cocaine Screen Urine NEGATIVE (NEGATIVE); Methadone Screen Urine NEGATIVE (NEGATIVE); Methamphetamines Screen Urine NEGATIVE (NEGATIVE); Opiate Screen Urine NEGATIVE (NEGATIVE); Oxycodone Screen Urine NEGATIVE (NEGATIVE); Phencyclidine Screen Urine NEGATIVE (NEGATIVE); Tricyclic Antidepressant Urine NEGATIVE (NEGATIVE)
[2024-09-29] MEDS: CEFAZOLIN SODIUM/DEXTROSE,ISO 2 GM/50 ML PIGGYBACK IV (07:06)
[2024-09-29] MEDS: FAMOTIDINE/PF 20 MG/2 ML VIAL IV (07:07)
[2024-09-29] MEDS: METOCLOPRAMIDE HCL 10 MG/2 ML VIAL IVP (07:15)
[2024-09-29] MEDS: CITRIC ACID/SODIUM CITRATE 30 ML SOLUTION ORACIT SHOHL'S SOLN PO (07:16)
--- NOTE | 2024-09-29 07:17 | P.OBHP_ITS ---
OB - H&P: HPI History of Present Illness Chief complaint: FBC : 3 Para: 1 Gestational age based on last menstrual period: 39.2 History of Present Dating criteria: other (Lae care ) care: limited care Ultrasounds: normal mid trimester US Medical complications OB: none Labs Blood type: O (+) positive Rubella: nonimmune RPR/VDLR: nonreactive GBS status: negative HBsAG: negative Review of Systems ROS Status of ROS: 10 or more systems reviewed and unremarkable except as noted in history and below PFSH PFSH Social History Highest level of school completed/degree received: some college, no degree Little interest or pleasure in doing things: not at all Feeling down, depressed, or hopeless: not at all Meds Home Medications and Allergies Home Medications ?Medication ?Instructions ?Recorded ?Confirmed ?Type ibuprofen 800 mg tablet 800 mg PO Q8H PRN pain 14 days #40 06/06/23 Rx tabs oxycodone-acetaminophen 5 mg-325 1 tab PO Q6H PRN pain 4 days #16 06/06/23 Rx mg tablet (Percocet) tabs Allergies Allergy/AdvReac Type Severity Reaction Status Date / Time No Known Drug Allergies Allergy Verified 06/03/23 08:26 Exam Constitutional Vital Signs, click to edit/add: Last Vital Signs Pulse 102 H 09/29/24 05:49 Resp 16 09/29/24 05:36 BP 122/73 09/29/24 05:49 O2 Del Method Room Air 09/29/24 05:36 Documenting provider has reviewed patient's vital signs: yes Common normals: no apparent distress HENMT Common normals: normocephalic Eye Common normals: EOMs intact bilaterally Neck & C-Spine Common normals: full ROM Lymph Lymphatic: no lymphadenopathy noted Chest Common normals: inspection of chest normal Respiratory Common normals: normal respiratory effort, no retractions, no use of accessory muscles, clear to auscultation bilaterally and percussion normal Effort & inspection: able to speak in complete sentences Cardio Common normals: regular rate and regular rhythm Rate: regular rate Rhythm: regular rhythm GI Common normals: Normal to inspection, nondistended, normoactive bowel sounds present Inspection: normal to inspection Auscultation: normoactive bowel sounds Palpation: soft and firm Common normals: no CVA tenderness Back & Pelvis Common normals: no CVA tenderness Extremity Common normals: normal to inspection Neuro Common normals: oriented x3 Sensorium/orientation: awake, alert, oriented to person, oriented to place and oriented to time Psych Common normals: mental status grossly normal and thought process normal Appearance: grossly normal Attitude: calm Results Labs Labs: Short CBC 09/29/24 Range/Units 05:57 WBC 9.3 (4.0-11.0) 10^3/uL Hgb 10.4 L (12.0-16.0) g/dL Hct 32.0 L (36.0-48.0) % Plt Count 242 (150-450) 10^3/uL Urine 09/29/24 Range/Units 05:45 Urine Color Lt. yellow (YELLOW) Urine Clarity Clear (CLEAR) Urine pH 6.0 (5.0-9.0) Ur Specific [place] 1.010 (1.005-1.025) Urine Protein Negative (NEG/TRACE) mg/dL Urine Glucose (UA) Negative (NEGATIVE) mg/dL OB - A/P Assessment and Plan (1) S/P repeat low transverse : (2) Late care: Urinary Catheter Management Urinary Catheter Management Urethral: Cath placed during this visit: no Urethral indwelling: Yes Reason for continuing: surgical procedure
[2024-09-29] MEDS: LACTATED RINGER'S SOLUTION 1,000 ML 50 ML IV ×2 (07:55→08:20)
--- NOTE | 2024-09-29 08:54 | PM.EN ---
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 I independently closed the SQ layer with a 4-0 vicryl and then I independently closed the skin incision with 3-0 vicryl without difficulty. Hemostasis noted at completion of case and patient tolerated procedure well.
[2024-09-29] MEDS: LACTATED RINGER'S SOLUTION 1,000 ML 125 ML IV (11:00)
[2024-09-29] MEDS: KETOROLAC TROMETHAMINE 30 MG/ML VIAL IVP ×2 (14:37→20:25)
[2024-09-29] MEDS: CEFAZOLIN SODIUM/DEXTROSE,ISO 1 GM/50 ML PREMIX IV (15:09)
[2024-09-29] MEDS: ACETAMINOPHEN 500 MG TABLET 1000 MG PO (16:39)
--- NOTE | 2024-09-29 19:43 | W.PC.ACHO ---
Registration Status: ADM IN Primary Language: Preferred Language: Portuguese Report received from Sp RN at 1915. Care assumed per this RN. Active Medications Generic Name Dose Route Start Last Admin Trade Name Freq PRN Reason Stop Dose Admin Acetaminophen 1,000 mg 09/29/24 16:00 09/29/24 16:39 Acetaminophen 500 Mg Tablet PO 10/01/24 09:00 1,000 mg Q8H VILMA Administration Al Hydroxide/Mg Hydroxide 2,400 mg 09/29/24 08:57 Magnesium Hydroxide 2,400 Mg/10 Ml Oral.Susp PO Q6H PRN Dyspepsia Diphenhydramine HCl 25 mg 09/29/24 08:57 Diphenhydramine Hcl 50 Mg/Ml Vial IV 09/30/24 08:57 Q6H PRN Itching Diphtheria/Pertussis/Tetanus Vacc 0.5 ml 10/01/24 09:00 Adacel Diph,Pertuss(Acell),Tet Vac/Pf 0.5 Ml Adult Syringe IM 10/01/24 09:01 .ONCE ONE Docusate Sodium 100 mg 09/30/24 09:00 Docusate Sodium 100 Mg Capsule PO BID VILMA Enoxaparin Sodium 40 mg 09/29/24 20:00 Enoxaparin Sodium 40 Mg/0.4 Ml Syringe SUBQ Q24H VILMA Lactated Ringer's 1,000 mls @ 125 mls/hr 09/29/24 06:00 Lactated Ringers IV .Q8H VILMA Oxytocin/Sodium Chloride 20 units in 1,000 mls @ 125 mls/hr 09/29/24 05:36 Pitocin 20 Unit/1,000 Ml-Ns IV Q8H PRN POST DELIVERY Lactated Ringer's 1,000 mls @ 50 mls/hr 09/29/24 09:00 09/29/24 11:00 Lactated Ringers IV Infused .Q20H VILMA Infusion Lactated Ringer's 1,000 mls @ 50 mls/hr 09/29/24 09:00 09/29/24 12:30 Lactated Ringers IV Infused .Q20H VILMA Infusion Promethazine HCl 25 mg/ Sodium 51 mls @ 204 mls/hr 09/29/24 08:57 Chloride IV Q6H PRN Nausea And Vomiting Lactated Ringer's 1,000 mls @ 125 mls/hr 09/29/24 10:00 09/29/24 16:00 Lactated Ringers IV Infused .Q8H PRN Infusion IF NOT TOLERATING PO FLUIDS OR Ibuprofen 800 mg 09/29/24 08:57 Ibuprofen 400 Mg Tablet PO Q8H PRN Pain Ibuprofen 800 mg 09/30/24 02:00 Ibuprofen 400 Mg Tablet PO Q8H VILMA Ketorolac Tromethamine 30 mg 09/29/24 08:57 Ketorolac Tromethamine 30 Mg/Ml Vial IVP 10/01/24 08:58 Q6H PRN Pain Ketorolac Tromethamine 30 mg 09/29/24 14:00 09/29/24 14:37 Ketorolac Tromethamine 30 Mg/Ml Vial IVP 09/30/24 02:01 30 mg Q6H VILMA Administration Nalbuphine HCl 10 mg 09/29/24 08:57 Nalbuphine Hcl 10 Mg/Ml Ampule IV 09/30/24 08:57 Q3H PRN Itching Ondansetron HCl 4 mg 09/29/24 08:57 Ondansetron Pf 4 Mg/2 Ml Vial IV Q6H PRN Nausea And Vomiting Ondansetron HCl 4 mg 09/29/24 08:57 Ondansetron 4 Mg Rapdis Tablet PO Q6H PRN Nausea And Vomiting Oxycodone HCl 5 mg 09/29/24 08:57 Oxycodone Hcl 5 Mg Tablet PO Q4H PRN Breakthrough Pain Oxycodone/Acetaminophen 1 tab 09/29/24 08:57 Oxycodone Hcl/Acetaminophen 5mg/325mg PO Q4H PRN Pain Scale 4-6 Oxycodone/Acetaminophen 2 tab 09/29/24 08:57 Oxycodone Hcl/Acetaminophen 5mg/325mg PO Q4H PRN Pain Scale 7-10 Senna 17.2 mg 09/29/24 20:00 Sennosides 8.6 Mg Tablet PO QHS PRN Constipation Simethicone 80 mg 09/29/24 08:57 Simethicone 80 Mg Tab.Chew PO QID PRN Abdominal Distention Diet Category Date Time Status Regular Consistency Diet Diet 09/29/24 08:57 Active Consults Category Date Time Status Consult to Anesthesiology Routine Cons 09/29/24 Ordered IV Insertion/Site Date of IV Line Insertion [20g 09/29/24 left Hand] IV Insertion Time [20g left 05:57 Hand] Neurology Patient orientation (short person,place,time,situation list) Doris coma scale total score 15 Renick coma scale total score 15 Renick coma scale total score 15 Respiratory Pulse Oximetry 95 Pulse Oximetry 92 Pulse Oximetry 90 Pulse Oximetry 95 Pulse Oximetry 96 Pulse Oximetry 96 Pulse Oximetry 96 Pulse Oximetry 98 Pulse Oximetry 97 Pulse Oximetry 96 Pulse Oximetry 96 Pulse Oximetry 94 Pulse Oximetry 96 Pulse Oximetry 97 Pulse Oximetry 96 Pulse Oximetry 97 Pulse Oximetry 97 Pulse Oximetry 96 Pulse Oximetry 96 Pulse Oximetry 91 Pulse Oximetry 93 Pulse Oximetry 94 Pulse Oximetry 94 Pulse Oximetry 93 Oxygen Delivery Method Room Air Oxygen Delivery Method Room Air Cardiology Heart Sounds Strong,Regular Catheter Urinary Catheter Date of 09/29/24 Insertion [Urethral] Urinary Catheter Date of 09/29/24 Insertion [Urethral] Urinary Catheter Date of 09/29/24 Insertion [Urethral] Urinary Catheter Date of 09/29/24 Insertion [Urethral] Urinary Catheter Time of 07:40 Insertion [Urethral] Urinary Catheter Time of 07:40 Insertion [Urethral] Urinary Catheter Time of 07:40 Insertion [Urethral] Urinary Catheter Time of 07:40 Insertion [Urethral]
[2024-09-29] MEDS: ENOXAPARIN SODIUM 40 MG/0.4 ML SYRINGE SUBQ (20:22)
--- NOTE | 2024-09-29 20:53 | PC.NURSE ---
NO fundal checks per provider.
[2024-09-30] VITALS (7 sets, daily range): BP systolic 108–113; BP diastolic 45–75; PULSE 90; TEMP 36.6–36.7; O2SAT 97
[2024-09-30] MEDS: KETOROLAC TROMETHAMINE 30 MG/ML VIAL IVP ×4 (02:35→20:01)
[2024-09-30 06:26] LABS: Basophils Percent Auto 0.1 % (0.2-2.0); Eosinophils Percent Auto 0.1 % (0.9-7.0); Hematocrit 24.1 % (36.0-48.0); Hemoglobin 7.6 g/dL (12.0-16.0); Immature Granulocytes Abs Auto 0.06 10^3/uL (0.00-0.03); Immature Granulocytes Pct Auto 0.4 % (0.0-0.5); Lymphocytes Absolute Auto 2.6 10^3/uL (1.2-3.8); Lymphocytes Percent Auto 16.5 % (20.5-60.0); Mean Corpuscular HGB Conc 31.5 g/dL (29.9-35.2); Mean Corpuscular Hemoglobin 25.8 pg (26.7-34.0); Mean Corpuscular Volume 81.7 fL (81.0-99.0); Mean Platelet Volume 11.6 fL (9.5-13.5); Monocytes Absolute Auto 1.4 10^3/uL (0.3-0.8); Monocytes Percent Auto 9.2 % (1.7-12.0); Neutrophils Absolute Auto 11.5 10^3/uL (1.4-6.5); Neutrophils Percent Auto 73.7 % (43.0-75.0); Platelet Count 196 10^3/uL (150-450); Red Blood Count 2.95 10^6/uL (4.20-5.40); Red Cell Distribution Width 14.6 % (11.0-15.0); White Blood Count 15.6 10^3/uL (4.0-11.0)
--- NOTE | 2024-09-30 07:23 | P.OBPN_ITS ---
OB - PN: Subj Subjective Patient comments: no complaints and pain well controlled [place] status: doing well Exam Constitutional Vital Signs, click to edit/add: Last Vital Signs Temp 98.0 F 09/30/24 00:45 Pulse 108 H 09/29/24 16:38 Resp 14 09/30/24 00:45 BP 107/60 09/29/24 16:38 Pulse Ox 95 09/29/24 16:38 O2 Del Method Room Air 09/30/24 00:00 Documenting provider has reviewed patient's vital signs: yes Common normals: no apparent distress Respiratory Common normals: normal respiratory effort and clear to auscultation bilaterally Cardio Common normals: regular rate and regular rhythm GI Common normals: Normal to inspection, nondistended, normoactive bowel sounds present Extremity Common normals: no clubbing, cyanosis or edema Results Labs Labs: Short CBC 09/30/24 Range/Units 06:10 WBC 15.6 H (4.0-11.0) 10^3/uL Hgb 7.6 L (12.0-16.0) g/dL Hct 24.1 L (36.0-48.0) % Plt Count 196 (150-450) 10^3/uL Urinary Catheter Management Urinary Catheter Management Urethral: Cath placed during this visit: yes, but has since been removed by the nurse Urethral indwelling: Yes Insertion date: 09/29/24 Insertion time: 07:40 Removal date: 09/29/24 Removal time: 20:30 OB - PN: A/P Assessment and Plan (1) S/P repeat low transverse : (2) Late care: Plan - day: 1 Plan: routine postop care Comment: labs reviewed Time Spent with Patient Time: Total time spent is greater than 50% in coordination of care (as documented) at patient's floor/unit and/or counseling patient: Total time spent with greater than 50% in coordination of care (as documented) at patient's floor/unit and/or counseling patient: less than 15 minutes
--- NOTE | 2024-09-30 07:44 | W.PC.ACHO ---
Registration Status: ADM IN Primary Language: Preferred Language: Luxembourgish Report given to JUAN RN at 0720. Care relinquished. Active Medications Generic Name Dose Route Start Last Admin Trade Name Freq PRN Reason Stop Dose Admin Acetaminophen 1,000 mg 09/29/24 16:00 09/30/24 00:00 Acetaminophen 500 Mg Tablet PO 10/01/24 09:00 1,000 mg Q8H VILMA Administration Al Hydroxide/Mg Hydroxide 2,400 mg 09/29/24 08:57 Magnesium Hydroxide 2,400 Mg/10 Ml Oral.Susp PO Q6H PRN Dyspepsia Diphenhydramine HCl 25 mg 09/29/24 08:57 Diphenhydramine Hcl 50 Mg/Ml Vial IV 09/30/24 08:57 Q6H PRN Itching Diphtheria/Pertussis/Tetanus Vacc 0.5 ml 10/01/24 09:00 Adacel Diph,Pertuss(Acell),Tet Vac/Pf 0.5 Ml Adult Syringe IM 10/01/24 09:01 .ONCE ONE Docusate Sodium 100 mg 09/30/24 09:00 Docusate Sodium 100 Mg Capsule PO BID VILMA Enoxaparin Sodium 40 mg 09/29/24 20:00 09/29/24 20:22 Enoxaparin Sodium 40 Mg/0.4 Ml Syringe SUBQ 40 mg Q24H VILMA Administration Ferrous Sulfate 325 mg 09/30/24 09:00 Ferrous Sulfate 325 Mg Tablet PO BID VILMA Lactated Ringer's 1,000 mls @ 125 mls/hr 09/29/24 06:00 Lactated Ringers IV .Q8H VILMA Oxytocin/Sodium Chloride 20 units in 1,000 mls @ 125 mls/hr 09/29/24 05:36 Pitocin 20 Unit/1,000 Ml-Ns IV Q8H PRN POST DELIVERY Lactated Ringer's 1,000 mls @ 50 mls/hr 09/29/24 09:00 09/29/24 11:00 Lactated Ringers IV Infused .Q20H VILMA Infusion Lactated Ringer's 1,000 mls @ 50 mls/hr 09/29/24 09:00 09/29/24 12:30 Lactated Ringers IV Infused .Q20H VILMA Infusion Promethazine HCl 25 mg/ Sodium 51 mls @ 204 mls/hr 09/29/24 08:57 Chloride IV Q6H PRN Nausea And Vomiting Lactated Ringer's 1,000 mls @ 125 mls/hr 09/29/24 10:00 09/29/24 16:00 Lactated Ringers IV Infused .Q8H PRN Infusion IF NOT TOLERATING PO FLUIDS OR Ibuprofen 800 mg 09/29/24 08:57 Ibuprofen 400 Mg Tablet PO Q8H PRN Pain Ibuprofen 800 mg 09/30/24 02:00 Ibuprofen 400 Mg Tablet PO Q8H VILMA Ketorolac Tromethamine 30 mg 09/29/24 08:57 Ketorolac Tromethamine 30 Mg/Ml Vial IVP 10/01/24 08:58 Q6H PRN Pain Nalbuphine HCl 10 mg 09/29/24 08:57 Nalbuphine Hcl 10 Mg/Ml Ampule IV 09/30/24 08:57 Q3H PRN Itching Ondansetron HCl 4 mg 09/29/24 08:57 Ondansetron Pf 4 Mg/2 Ml Vial IV Q6H PRN Nausea And Vomiting Ondansetron HCl 4 mg 09/29/24 08:57 Ondansetron 4 Mg Rapdis Tablet PO Q6H PRN Nausea And Vomiting Oxycodone HCl 5 mg 09/29/24 08:57 Oxycodone Hcl 5 Mg Tablet PO Q4H PRN Breakthrough Pain Oxycodone/Acetaminophen 1 tab 09/29/24 08:57 Oxycodone Hcl/Acetaminophen 5mg/325mg PO Q4H PRN Pain Scale 4-6 Oxycodone/Acetaminophen 2 tab 09/29/24 08:57 Oxycodone Hcl/Acetaminophen 5mg/325mg PO Q4H PRN Pain Scale 7-10 Senna 17.2 mg 09/29/24 20:00 Sennosides 8.6 Mg Tablet PO QHS PRN Constipation Simethicone 80 mg 09/29/24 08:57 Simethicone 80 Mg Tab.Chew PO QID PRN Abdominal Distention Diet Category Date Time Status Regular Consistency Diet Diet 09/29/24 08:57 Active Neurology Doris coma scale total score 15 Doris coma scale total score 15 Doris coma scale total score 15 Respiratory Pulse Oximetry 95 Pulse Oximetry 92 Pulse Oximetry 90 Pulse Oximetry 95 Pulse Oximetry 96 Pulse Oximetry 96 Pulse Oximetry 96 Pulse Oximetry 98 Pulse Oximetry 97 Pulse Oximetry 96 Pulse Oximetry 96 Pulse Oximetry 94 Pulse Oximetry 96 Pulse Oximetry 97 Pulse Oximetry 96 Pulse Oximetry 97 Pulse Oximetry 97 Pulse Oximetry 96 Pulse Oximetry 96 Pulse Oximetry 91 Pulse Oximetry 93 Pulse Oximetry 94 Pulse Oximetry 94 Pulse Oximetry 93 Oxygen Delivery Method Room Air Oxygen Delivery Method Room Air Oxygen Delivery Method Room Air Oxygen Delivery Method Room Air Cardiology Heart Sounds Strong,Regular Bowels Bowel Pattern Constipated Renal Bladder Pattern Continent Bladder Pattern Continent Catheter Urinary Catheter Date of 09/29/24 Insertion [Urethral] Urinary Catheter Date of 09/29/24 Insertion [Urethral] Urinary Catheter Date of 09/29/24 Insertion [Urethral] Urinary Catheter Date of 09/29/24 Insertion [Urethral] Urinary Catheter Date of 09/29/24 Insertion [Urethral] Urinary Catheter Time of 07:40 Insertion [Urethral] Urinary Catheter Time of 07:40 Insertion [Urethral] Urinary Catheter Time of 07:40 Insertion [Urethral] Urinary Catheter Time of 07:40 Insertion [Urethral] Urinary Catheter Time of 07:40 Insertion [Urethral] Date Urinary Catheter Removed 09/29/24 [Urethral] Date Urinary Catheter Removed 09/29/24 [Urethral] Time Urinary Catheter 20:30 Discontinued [Urethral] Time Urinary Catheter 20:30 Discontinued [Urethral]
[2024-09-30] MEDS: FERROUS SULFATE 325 MG TABLET PO ×2 (09:45→21:53)
[2024-09-30] MEDS: DOCUSATE SODIUM 100 MG CAPSULE PO ×2 (09:45→21:53)
[2024-09-30] MEDS: OXYCODONE HCL 5 MG TABLET PO ×2 (10:26→21:56)
[2024-09-30] MEDS: ACETAMINOPHEN 500 MG TABLET 1000 MG PO ×3 (10:26→20:02)
[2024-09-30] MEDS: ENOXAPARIN SODIUM 40 MG/0.4 ML SYRINGE SUBQ (21:57)
[2024-10-01 00:11] VITALS: BP 101/72; TEMP 37.2
[2024-10-01] MEDS: KETOROLAC TROMETHAMINE 30 MG/ML VIAL IVP (02:25)
[2024-10-01] MEDS: ACETAMINOPHEN 500 MG TABLET 1000 MG PO (05:39)
[2024-10-01 06:44] LABS: Basophils Percent Auto 0.3 % (0.2-2.0); Eosinophils Absolute Auto 0.1 10^3/uL (0.0-0.7); Eosinophils Percent Auto 0.7 % (0.9-7.0); Hematocrit 24.6 % (36.0-48.0); Hemoglobin 7.7 g/dL (12.0-16.0); Immature Granulocytes Abs Auto 0.03 10^3/uL (0.00-0.03); Immature Granulocytes Pct Auto 0.3 % (0.0-0.5); Lymphocytes Absolute Auto 3.4 10^3/uL (1.2-3.8); Lymphocytes Percent Auto 33.8 % (20.5-60.0); Mean Corpuscular HGB Conc 31.3 g/dL (29.9-35.2); Mean Corpuscular Hemoglobin 25.8 pg (26.7-34.0); Mean Corpuscular Volume 82.6 fL (81.0-99.0); Mean Platelet Volume 11.4 fL (9.5-13.5); Monocytes Absolute Auto 0.8 10^3/uL (0.3-0.8); Monocytes Percent Auto 7.9 % (1.7-12.0); Neutrophils Absolute Auto 5.7 10^3/uL (1.4-6.5); Platelet Count 202 10^3/uL (150-450); Red Blood Count 2.98 10^6/uL (4.20-5.40); Red Cell Distribution Width 15.2 % (11.0-15.0); White Blood Count 10.1 10^3/uL (4.0-11.0)
[2024-10-01] MEDS: IBUPROFEN 400 MG TABLET 800 MG PO ×2 (08:42→17:36)
[2024-10-01] MEDS: FERROUS SULFATE 325 MG TABLET PO ×2 (08:42→20:21)
[2024-10-01] MEDS: DOCUSATE SODIUM 100 MG CAPSULE PO ×2 (08:42→20:21)
[2024-10-01 08:45] VITALS: BP 106/74; TEMP 36.7
--- NOTE | 2024-10-01 10:35 | PM.OBPN ---
OB - PN: Subj Subjective Patient comments: no complaints and pain well controlled [place] status: doing well Exam Constitutional Vital Signs, click to edit/add: Last Vital Signs Temp 98.1 F 10/01/24 08:45 Pulse 90 09/30/24 16:30 Resp 14 10/01/24 08:45 BP 106/74 10/01/24 08:45 Pulse Ox 97 09/30/24 16:30 O2 Del Method Room Air 10/01/24 08:45 Documenting provider has reviewed patient's vital signs: yes Common normals: no apparent distress Respiratory Common normals: clear to auscultation bilaterally Cardio Common normals: regular rate and regular rhythm GI Common normals: Normal to inspection, nondistended, normoactive bowel sounds present Extremity Common normals: no calf tenderness Results Labs Labs: Short CBC 10/01/24 Range/Units 06:27 WBC 10.1 (4.0-11.0) 10^3/uL Hgb 7.7 L (12.0-16.0) g/dL Hct 24.6 L (36.0-48.0) % Plt Count 202 (150-450) 10^3/uL Urinary Catheter Management Urinary Catheter Management Urethral: Cath placed during this visit: yes, but has since been removed by the nurse Urethral indwelling: Yes Insertion date: 09/29/24 Insertion time: 07:40 Removal date: 09/29/24 Removal time: 20:30 OB - PN: A/P Assessment and Plan (1) S/P repeat low transverse : (2) Late care: Plan - day: 2 Plan: routine postop care, discharge home and other (fu 1wk) Time Spent with Patient Time: Total time spent is greater than 50% in coordination of care (as documented) at patient's floor/unit and/or counseling patient: Total time spent with greater than 50% in coordination of care (as documented) at patient's floor/unit and/or counseling patient: less than 15 minutes
[2024-10-01] MEDS: OXYCODONE HCL/ACETAMINOPHEN 5MG/325MG 2 TAB PO ×3 (10:36→20:20)
[2024-10-01 17:38] VITALS: BP 114/73
[2024-10-01] MEDS: ENOXAPARIN SODIUM 40 MG/0.4 ML SYRINGE SUBQ (20:21)
--- NOTE | 2024-10-01 20:54 | RESP.RT ---
PEP not done at this time. Pt in the shower.
[2024-10-01 23:28] VITALS: BP 104/72; TEMP 36.7
[2024-10-02] MEDS: IBUPROFEN 400 MG TABLET 800 MG PO (06:28)
--- NOTE | 2024-10-02 08:18 | P.OBPN_ITS ---
OB - PN: Subj Subjective Patient comments: no complaints and pain well controlled [place] status: doing well Exam Constitutional Vital Signs, click to edit/add: Last Vital Signs Temp 98.1 F 10/01/24 23:28 Pulse 90 09/30/24 16:30 Resp 16 10/01/24 23:30 BP 104/72 10/01/24 23:28 Pulse Ox 97 09/30/24 16:30 O2 Del Method Room Air 10/01/24 23:30 Documenting provider has reviewed patient's vital signs: yes Common normals: no apparent distress Respiratory Common normals: normal respiratory effort and clear to auscultation bilaterally Cardio Common normals: regular rate and regular rhythm GI Common normals: Normal to inspection, nondistended, normoactive bowel sounds present Extremity Common normals: no clubbing, cyanosis or edema and no calf tenderness Urinary Catheter Management Urinary Catheter Management Urethral: Cath placed during this visit: yes, but has since been removed by the nurse Urethral indwelling: Yes Insertion date: 09/29/24 Insertion time: 07:40 Removal date: 09/29/24 Removal time: 20:30 OB - PN: A/P Assessment and Plan (1) S/P repeat low transverse : (2) Late care: Plan - day: 3 Plan: routine postop care, discharge home and other (fu 1wk) Time Spent with Patient Time: Total time spent is greater than 50% in coordination of care (as documented) at patient's floor/unit and/or counseling patient: Total time spent with greater than 50% in coordination of care (as documented) at patient's floor/unit and/or counseling patient: less than 15 minutes
[2024-10-02] MEDS: DOCUSATE SODIUM 100 MG CAPSULE PO (08:56)
[2024-10-02] MEDS: FERROUS SULFATE 325 MG TABLET PO (08:56)
[2024-10-02 08:58] VITALS: BP 125/83
[2024-10-02 09:00] VITALS: TEMP 36.9
[2024-10-02] MEDS: OXYCODONE HCL/ACETAMINOPHEN 5MG/325MG 2 TAB PO (10:27)
--- NOTE | 2024-10-07 08:22 | PM.OBPRCCS ---
Procedure Pre-op/Post-op diagnoses: Pre-Op/Post-Op Diagnoses Operation Date: 09/29/24 07:30 <No data on this case meets the specified criteria> Procedure: Procedures Operation Date: 09/29/24 07:30 Actual Procedure Side Surgeon p Repeat Not Applicable Chin Beard DO Equipment Monitor Phototypesetting: LALY PRADO Estimated blood loss (mL): 575 Disposition: PACU Anesthesia type: Spinal
--- NOTE | 2024-10-07 08:23 | PM.ONB ---
Brief Operative Note Date of procedure: 09/29/24 Pre-op diagnosis general: iup at term gestation, previous c/s Post-op diagnosis: same as pre-op Procedure: NAME OF PROCEDURE: [ section ] PROCEDURE: Patient was taken back to the Operating Room where she was given a spinal anesthesia with Duramorph without difficulty. She was prepped and draped in the normal sterile fashion. A Pfannenstiel skin incision was then made 2 cm above the symphysis pubis and carried down to underlying rectus fascia using a Bovie. The fascia was incised in the midline and extended laterally using Nation scissors. Two Rohit clamps were placed on the superior aspect of the fascia and dissected off the underlying rectus muscles. The same was performed on the inferior aspect as well. The muscles were then in the midline. Peritoneum was identified and entered bluntly. The peritoneum was then extended superiorly and inferiorly with good visualization of the bladder. The bladder blade was inserted. A low transverse incision was made on the patient's uterus and extended laterally digitally. The was then delivered atraumatically after the bladder blade was removed in the cephalic position. The cord was clamped and cut. Cord blood was obtained. The was handed off to awaiting team. The patient's placenta was spontaneously delivered. The uterus was then exteriorized. The uterus was cleared of all clots and debris. The bladder blade was reinserted. The patient's uterine incision was closed using #0 Vicryl in a running lock fashion. Excellent hemostasis was assured. The uterus was then returned to the patient's abdomen. The patient's abdomen was copiously irrigated using warm saline. Peritoneal gutters were cleared of all clots and debris. Again excellent hemostasis was assured. The patient's peritoneum was closed using 3-0 Vicryl in a running fashion. The patient's fascia was closed using #0 Vicryl in a running fashion. The patient's skin was closed using 4-0 Vicryl subcuticularly. The patient tolerated the procedure well. Sponge, lap, and needle counts were correct x2. The patient was taken to the Recovery Room in stable condition. Anesthesia: spinal Surgeon: Chin Beard Certified Phlebotomist: LALY PRADO Estimated blood loss (mL): 575 Pathology: none sent Condition: stable Disposition: PACU Urinary Catheter Management Urinary Catheter Management Urethral: Cath placed during this visit: yes, but has since been removed by the nurse Urethral indwelling: Yes Insertion date: 09/29/24 Insertion time: 07:40 Removal date: 09/29/24 Removal time: 20:30
== END 2024-10-02 11:00 | disposition home or self-care (01) | DRG 788 ==
PROVIDERS: Obstetrics & Gynecology; Admitting Provider Midwife; PCP Family Medicine; Visit Provider Midwife
PROC: 10D00Z1 Extraction of Products of Conception, Low, Open Approach (ICD-10-PCS; CPT 59514; principal; 2024-09-29 07:30)
DX: O34.211 Maternal care for low transverse scar from previous cesarean delivery (principal); Z3A.39 39 weeks gestation of pregnancy; Z37.0 Single live birth
CPT/HCPCS: 36415; 51702; 64488; 80307; 81001; 85025; 86850; 86900; 86901; 88307; 94667; 94668; J0131; J0665; J0690; J1100; J1650; J1885; J2274; J2371; J2405; J2590; J2765; J3490